=== PATIENT | male | born 1970 | race African-American/Black ===

== ENCOUNTER 2018-06-23 13:52 | Emergency (ER) | payer MEDICAID ==
[~2018-06-23] VITALS: Ht 182.9 cm; Wt 99.8 kg
[2018-06-23 14:12] VITALS: BP 157/90
[2018-06-23] MEDS ORDERED: TYLENOL EXTRA500 MG ORAL (14:12)
[2018-06-23] MEDS ORDERED: BACLOFEN10 MG ORAL (14:12)
[2018-06-23] MEDS ORDERED: GABAPENTIN100 MG ORAL (14:12)
[2018-06-23] MEDS ORDERED: DiphenhydrAMINE 50mg/ml Inj IVP ONE (14:30)
[2018-06-23] MEDS ORDERED: Metoclopramide 10mg/2ml Inj IVP ONE (14:30)
--- NOTE | 2018-06-23 14:31 | Emergency Room Report ---
History of Present Illness General Chief Complaint: General Complaint Source: Patient Present Illness HPI Patient presents with vomiting of blood. He is says it looks like wind punch. He denies any melena. This started yesterday. Also passed out yesterday when he stood up. He's been taking medication for back pain and shoulder pain. She was injured April 12 on the job [place] He states x-rays showed overlapping bones and also that his lumbar spine hasn't L deformity. He's been taking Tylenol baclofen and Gabapentin. He denies abdominal pain but he says that the back pain radiates somewhat to his abdomen. The back pain is 10/10 radiates down his left leg. He feels some numbness in his lower extremity on that side. There is no incontinence. He has been straining with his stools. No chest pain, dysuria, hematuria, blood thinners, oncologic problems, headache , neck pain, cough. Allergies: Coded Allergies: PENICILLINS (Verified Allergy, Unknown, 06/23/18) Patient History Past Medical History: see triage record Social History: Reports: smoking, alcohol use Social History Narrative Works for [employer] Reviewed Nursing Documentation: PMH: Agreed; PSxH: Agreed Nursing Documentation-PMH Past Medical History: No History, Except For Hx Cardiac Problems: No Hx Hypertension: No Hx Pacemaker: No Hx Asthma: Yes Hx COPD: No Hx Diabetes: No Hx Cancer: No Hx Gastrointestinal Problems: No Hx Dialysis: No History Of Psychiatric Problem: Yes - depression Hx Cerebrovascular Accident: No Hx Seizures: No Review of Systems All Other Systems: negative except mentioned in HPI Physical Exam Vital Signs Date Time Temp Pulse Resp B/P (MAP) Pulse Ox O2 Delivery O2 Flow Rate FiO2 06/23/18 14:02 97.7 77 14 157/90 98 Room Air 97.7 Sp02 EP Interpretation: reviewed, normal General Appearance: well appearing, no apparent distress, GCS 15 Head: normocephalic Eyes: bilateral eye normal inspection, bilateral eye PERRL, bilateral eye EOMI ENT: moist mucus membranes Neck: supple Respiratory: lungs clear, normal breath sounds Cardiovascular #1: regular rate, rhythm Cardiovascular #2: 2+ radial (R) Gastrointestinal: normal inspection, normal bowel sounds, no mass, non- distended, no guarding, no rebound, tenderness - epigastric Musculoskeletal: gait/station normal, normal range of motion, other - lumbar tenderness, not point, no step off. SLR neg L, muscle spasm Neurologic: alert, oriented x3, motor strength/tone normal, DTRs symmetric, sensory intact, normal gait, speech normal Psychiatric: mood/affect normal Skin: normal inspection, warm/dry Medical Decision Making Diagnostic Impression: Primary Impression: Acute pancreatitis Qualified Codes: K85.90 - Acute pancreatitis without necrosis or infection, unspecified Additional Impressions: Syncope Qualified Codes: R55 - Syncope and collapse Back pain Qualified Codes: M54.5 - Low back pain Right shoulder pain Qualified Codes: M25.511 - Pain in right shoulder; G89.29 - Other chronic pain Alleged vomiting blood ER Course Patient presents with alleged vomiting of blood. In addition to that he says he passed out yesterday. Differential includes gastritis, peptic ulcer disease , GERD amongst others. His abdominal exam is benign. His color is good. We need to exclude arrhythmia and acute myocardial infarction as he had syncope yesterday. Evaluation will be with EKG and labs. He will be treated with IV hydration, Reglan and Benadryl with Pepcid. He came by bus and therefore we are limited in analgesia working give him at this time. EKG no injury. Labs with elevated lipase. Morphine given for pain. Ultrasound - no stones. Patient improved. Discussed with Dr. Tipton who accepts the patient in transfer at [facility]. Laboratory Tests Test 06/23/18 14:35 06/23/18 15:05 White Blood Count 5.9 K/UL (4.8-10.8) Red Blood Count 5.07 M/UL (4.70-6.10) Hemoglobin 14.4 G/DL (14.2-18.0) Hematocrit 44.7 % (42.0-52.0) Mean Corpuscular Volume 88 FL (80-99) Mean Corpuscular Hemoglobin 28.5 PG (27.0-31.0) Mean Corpuscular Hemoglobin Concent 32.3 G/DL (32.0-36.0) Red Cell Distribution Width 13.4 % (11.6-14.8) Platelet Count 240 K/UL (150-450) Mean Platelet Volume 6.8 FL (6.5-10.1) Neutrophils (%) (Auto) 61.4 % (45.0-75.0) Lymphocytes (%) (Auto) 28.9 % (20.0-45.0) Monocytes (%) (Auto) 6.7 % (1.0-10.0) Eosinophils (%) (Auto) 2.3 % (0.0-3.0) Basophils (%) (Auto) 0.7 % (0.0-2.0) Prothrombin Time 11.1 SEC (9.30-11.50) Prothrombin Time INR 1.1 (0.9-1.1) PTT 28 SEC (23-33) Sodium Level 139 MMOL/L (136-145) Potassium Level 4.7 MMOL/L (3.5-5.1) Chloride Level 103 MMOL/L (98-107) Carbon Dioxide Level 28 MMOL/L (21-32) Anion Gap 8 mmol/L (5-15) Blood Urea Nitrogen 10 mg/dL (7-18) Creatinine 1.1 MG/DL (0.55-1.30) Estimate Glomerular Filtration Rate > 60 mL/min (>60) Glucose Level 89 MG/DL (74-106) Calcium Level 9.9 MG/DL (8.5-10.1) Total Bilirubin 0.5 MG/DL (0.2-1.0) Aspartate Amino Transferase (AST) 33 U/L (15-37) Alanine Aminotransferase (ALT) 34 U/L (12-78) Alkaline Phosphatase 124 U/L (46-116) H Total Creatine Kinase 356 U/L (26-308) H Troponin I 0.000 ng/mL (0.000-0.056) Total Protein 8.1 G/DL (6.4-8.2) Albumin 4.1 G/DL (3.4-5.0) Globulin 4.0 g/dL Albumin/Globulin Ratio 1.0 (1.0-2.7) Lipase 612 U/L (73-393) H Urine Color Pale yellow Urine Appearance Clear Urine pH 5 (4.5-8.0) Urine Specific [place] 1.015 (1.005-1.035) Urine Protein Negative (NEGATIVE) Urine Glucose (UA) Negative (NEGATIVE) Urine Ketones Negative (NEGATIVE) Urine Blood Negative (NEGATIVE) Urine Nitrite Negative (NEGATIVE) Urine Bilirubin Negative (NEGATIVE) Urine Urobilinogen Normal MG/DL (0.0-1.0) Urine Leukocyte Esterase Negative (NEGATIVE) Urine Opiates Screen Negative (NEGATIVE) Urine Barbiturates Screen Negative (NEGATIVE) Phencyclidine (PCP) Screen Negative (NEGATIVE) Urine Amphetamines Screen Negative (NEGATIVE) Urine Benzodiazepines Screen Negative (NEGATIVE) Urine Cocaine Screen Negative (NEGATIVE) Urine Marijuana (THC) Screen Positive (NEGATIVE) H EKG Diagnostic Results Rate: normal Rhythm: NSR ST Segments: no acute changes Rhythm Strip Diag. Results EP Interpretation: yes Rhythm: NSR, no PVC's, no ectopy CT/MRI/US Diagnostic Results CT/MRI/US Diagnostic Results : Imaging Test Ordered: ultrasound Impression No stones Last Vital Signs Date Time Temp Pulse Resp B/P (MAP) Pulse Ox O2 Delivery O2 Flow Rate FiO2 06/23/18 21:30 86 18 131/99 99 Room Air 06/23/18 20:24 98.4 Status: improved Disposition: XFER SHT-TRM HOSP Condition: Serious - stable for transfer Samuel Goins M.D. Jun 23, 2018 14:31
[2018-06-23 14:56] LABS: BASOPHILS % (AUTO) 0.7 % (0.0-2.0); EOSINOPHILS % (AUTO) 2.3 % (0.0-3.0); HEMATOCRIT 44.7 % (42.0-52.0); HEMOGLOBIN 14.4 G/DL (14.2-18.0); LYMPHOCYTES % (AUTO) 28.9 % (20.0-45.0); MEAN CORPUSCULAR VOLUME 88 FL (80-99); MONOCYTES % (AUTO) 6.7 % (1.0-10.0); NEUTROPHILS % (AUTO) 61.4 % (45.0-75.0); PLATELET COUNT 240 K/UL (150-450); RED BLOOD COUNT 5.07 M/UL (4.70-6.10); RED CELL DISTRIBUTION WIDTH 13.4 % (11.6-14.8); WHITE BLOOD COUNT 5.9 K/UL (4.8-10.8)
[2018-06-23 15:10] LABS: ANION GAP 8 mmol/L (5-15); BLOOD UREA NITROGEN 10 mg/dL (7-18); CALCIUM 9.9 MG/DL (8.5-10.1); CARBON DIOXIDE 28 MMOL/L (21-32); CHLORIDE 103 MMOL/L (98-107); CREATININE 1.1 MG/DL (0.55-1.30); POTASSIUM 4.7 MMOL/L (3.5-5.1); SODIUM 139 MMOL/L (136-145)
[2018-06-23 15:11] LABS: INR 1.1 (0.9-1.1)
[2018-06-23 15:15] LABS: ALANINE AMINOTRANSFERASE 34 U/L (12-78); ALBUMIN 4.1 G/DL (3.4-5.0); ALKALINE PHOSPHATASE 124 U/L (46-116); ASPARTATE AMINO TRANSFERASE 33 U/L (15-37); BILIRUBIN,TOTAL 0.5 MG/DL (0.2-1.0); CREATINE KINASE 356 U/L (26-308)
[2018-06-23 15:17] VITALS: BP 191/69
[2018-06-23 15:20] LABS: APPEARANCE,URINE CLEAR; BILIRUBIN, URINE NEGATIVE (NEGATIVE); COLOR,URINE PALE YELLOW; GLUCOSE, URINE (UA) NEGATIVE (NEGATIVE); KETONES,URINE NEGATIVE (NEGATIVE); LEUKOCYTE ESTERASE ,URINE NEGATIVE (NEGATIVE); NITRITE,URINE NEGATIVE (NEGATIVE); PH,URINE 5 (4.5-8.0); PROTEIN,URINE NEGATIVE (NEGATIVE); UROBILINOGEN,URINE NORMAL MG/DL (0.0-1.0)
[2018-06-23] MEDS ORDERED: Morphine Sulfate 4mg/ml Inj (IV USE ONLY) IVP ONE ×2 (15:30→20:30)
[2018-06-23 16:00] VITALS: BP 135/80
[2018-06-23 17:49] VITALS: BP 127/99
[2018-06-23] MEDS ORDERED: Pantoprazole Inj IVP ONE (18:15)
[2018-06-23 19:10] VITALS: BP 138/97
[2018-06-23 21:30] VITALS: BP 131/99
[2018-06-24 01:00] VITALS: BP 131/99
[2018-06-24] MEDS ORDERED: OMEPRAZOLE20 M2 ORAL (06:42)
[2018-06-24] MEDS ORDERED: NORCO 5-325 TA1 EACH ORAL (06:42)
--- NOTE | 2018-06-24 11:41 | Diagnostic Imaging Report ---
Indication: Abnormal pain Technique: Multiplanar ultrasound imaging of the abdomen. Duplex Doppler evaluation was also performed. Comparison: None Findings: Imaged portions of the pancreatic head grossly unremarkable. Remainder the pancreas not visualized. Liver is normal in size with the right lobe measuring 14 cm in length. Hepatic contour appears smooth. Echogenicity is homogeneous. No focal hepatic mass lesion is appreciated sonographically. Imaged hepatic veins are patent. The portal vein appears patent. No gallstones or gallbladder sludge identified. Sonographic Gonzalez sign reported as negative. No gallbladder wall thickening or pericholecystic fluid. No intrahepatic or extrahepatic biliary duct dilatation. The common bile duct measures approximately 1.5 mm in diameter. The kidneys demonstrate normal echogenicity. Normal color flow is also noted in the bilateral kidneys. No hydronephrosis or sonographically appreciable renal stones. The spleen is normal in size. Normal color flow to the spleen is identified. Imaged portions of the abdominal aorta and IVC are normal in caliber. No appreciable ascites. IMPRESSION: No sonographic evidence of acute intra-abdominal pathology.
--- NOTE | 2018-06-24 19:55 | Cardiology Report ---
APPROVED REPORT EKG Measurement Heart [id number] Normal sinus rhythm Normal ECG
[2018-06-24] MEDS ORDERED: XOPENEX HFA15 GM IH (23:47)
== END 2018-06-23 21:35 | disposition short-term general hospital (02) ==
LOC: EMR 14:32
DX: K85.90 Acute pancreatitis without necrosis or infection, unspecified (principal); R55 Syncope and collapse; Z88.0 Allergy status to penicillin
CPT/HCPCS: 36415; 76700; 80053; 80307; 81003; 82550; 83690; 84484; 85025; 85610; 85730; 93005; 96361; 96374; 96375; 96376; 99284; J1200; J2270; J2765; S0028; 96372

== ENCOUNTER 2018-06-24 06:11 | Emergency (ER) | payer MEDICAID ==
[~2018-06-24] VITALS: Ht 182.9 cm; Wt 101.6 kg
[~2018-06-24 06:11] MED LIST: BACLOFEN10 MG ORAL; GABAPENTIN100 MG ORAL; TYLENOL EXTRA500 MG ORAL
[2018-06-24 06:35] VITALS: BP 114/76
[2018-06-24] MEDS ORDERED: OMEPRAZOLE20 M2 ORAL (06:42)
[2018-06-24] MEDS ORDERED: NORCO 5-325 TA1 EACH ORAL (06:42)
[2018-06-24 06:50] VITALS: BP 114/76
--- NOTE | 2018-06-24 06:52 | Emergency Room Report ---
History of Present Illness General Chief Complaint: General Complaint Source: Patient Present Illness HPI Patient is a 47-year-old male recent transfer to [facility] for pancreatitis 2 presented after increased abdominal pain. The patient states he been vomiting blood for several days. The patient denies any current emesis. He had recently been the discharge against medical advise at [facility] after having been transferred from here. Patient denies any dizziness. He reports having epigastric pain. He stated that he did not like his treatment [facility]. The patient states he does not want to be admitted again. The patient was having moderate pain. Patient states he prefers to be managed as an outpatient.The patient was noted to have adequate hemoglobin on previous laboratories. Allergies: Coded Allergies: PENICILLINS (Verified Allergy, Unknown, 06/23/18) Patient History Past Medical History: see triage record Reviewed Nursing Documentation: PMH: Agreed; PSxH: Agreed Nursing Documentation-PMH Past Medical History: No History, Except For Hx Cardiac Problems: No Hx Hypertension: No Hx Pacemaker: No Hx Asthma: Yes Hx COPD: No Hx Diabetes: No Hx Cancer: No Hx Gastrointestinal Problems: No Hx Dialysis: No Hx Cerebrovascular Accident: No Hx Seizures: No Review of Systems All Other Systems: negative except mentioned in HPI Physical Exam Vital Signs Date Time Temp Pulse Resp B/P (MAP) Pulse Ox O2 Delivery O2 Flow Rate FiO2 06/24/18 06:20 98.6 77 16 114/76 98 Room Air 98.6 Sp02 EP Interpretation: reviewed, normal General Appearance: normal inspection, well appearing, no apparent distress, alert, GCS 15 Head: atraumatic ENT: normal ENT inspection, hearing grossly normal, normal voice Neck: normal inspection, full range of motion, supple, no bony tend Respiratory: normal inspection, lungs clear, normal breath sounds, no respiratory distress, no retraction, no wheezing Cardiovascular #1: regular rate, rhythm, no edema Gastrointestinal: normal inspection, normal bowel sounds, non tender, soft, no guarding, no hernia Genitourinary: no CVA tenderness Musculoskeletal: normal inspection, back normal, normal range of motion Neurologic: normal inspection, alert, oriented x3, responsive, lusterer III-XII nml as tested, speech normal Psychiatric: normal inspection, judgement/insight normal, mood/affect normal Skin: normal inspection, normal color, no rash Medical Decision Making Diagnostic Impression: Primary Impression: Pancreatitis ER Course Patient presented for abdominal pain. Differential diagnoses included ischemic bowel, appendicitis, perforated viscus, abdominal aortic aneurysm, inferior myocardial infarction, viral gastroenteritis. Patient has a benign exam and does not appear to require any further imaging or laboratory testing at this time. The patient was noted to have normal vital signs.The patient does not appear to be significantly vomiting blood at this time. The patient does not appear to require laboratories given prolonged and presentation after vomiting began. The patient noted have evidence of pancreatitis and prior laboratory testing. The patient appears to be adequately tolerating by mouth fluids. The patient is advised to not drink alcohol. The patient stated that if his laboratory testing was abnormal he would not be hospitalized. Patient was advised follow-up with systems protection technician. Patient is advised to return if he began having persistent vomiting worsening pain or or changed his mind about admission. Last Vital Signs Date Time Temp Pulse Resp B/P (MAP) Pulse Ox O2 Delivery O2 Flow Rate FiO2 06/24/18 06:20 98.6 77 16 114/76 98 Room Air 98.6 Status: improved Disposition: HOME, SELF-CARE Condition: Stable Scripts Omeprazole (OMEPRAZOLE) 20 Mg Capsule.dr 20 MG ORAL DAILY, #30 CAP Prov: Jim Dominguez MD 06/24/18 Hydrocodone Bit/Acetaminophen 5-325* (NORCO 5-325*) 1 Each Tablet 1 TAB ORAL Q6H PRN for For Pain, #14 TAB 0 Refills Prov: Jim Dominguez MD 06/24/18 Patient Instructions: Acute Pancreatitis Jim Dominguez MD Jun 24, 2018 06:52
[2018-06-24] MEDS ORDERED: XOPENEX HFA15 GM IH (23:47)
== END 2018-06-24 06:50 | disposition home or self-care (01) ==
LOC: EMR 06:32
DX: K85.90 Acute pancreatitis without necrosis or infection, unspecified (principal); Z88.0 Allergy status to penicillin
CPT/HCPCS: 99283

== ENCOUNTER 2018-06-24 18:23 | Inpatient (IN) | payer MEDICAID ==
[~2018-06-24] VITALS: Ht 182.9 cm; Wt 101.6 kg
[~2018-06-24 18:23] MED LIST changes: +NORCO 5-325 TA1 EACH ORAL; +OMEPRAZOLE20 M2 ORAL
[2018-06-24 20:15] VITALS: BP 135/90
[2018-06-24 20:27] LABS: ANION GAP 8 mmol/L (5-15); BLOOD UREA NITROGEN 8 mg/dL (7-18); CARBON DIOXIDE 30 MMOL/L (21-32); CHLORIDE 100 MMOL/L (98-107); CREATININE 1.2 MG/DL (0.55-1.30); POTASSIUM 3.7 MMOL/L (3.5-5.1); SODIUM 138 MMOL/L (136-145)
[2018-06-24 20:31] LABS: ALANINE AMINOTRANSFERASE 36 U/L (12-78); ALBUMIN 4.4 G/DL (3.4-5.0); ALBUMIN/GLOBULIN RATIO 1.1 (1.0-2.7); ALKALINE PHOSPHATASE 125 U/L (46-116); ASPARTATE AMINO TRANSFERASE 27 U/L (15-37); BILIRUBIN,TOTAL 0.5 MG/DL (0.2-1.0)
--- NOTE | 2018-06-24 20:40 | Emergency Room Report ---
History of Present Illness General Chief Complaint: General Complaint Source: Patient, Medical Record Present Illness HPI Patient represents. He was transferred yesterday to [facility] for pancreatitis, upper GI bleed and syncope. He states nothing was done for him there and so he signed out AGAINST MEDICAL ADVICE. He vomited some blood again today. The there still pain in his stomach and back. The pain is rated at 9/10 , aching, more in his back but also epigastric. He has passed some blood with his stool, but denies melena. Ultrasound of abdomen done yesterday which was normal. The patient suffered a work injury April 22 fell onto his shoulder. He also injured his back. He's being evaluated for the pain there. He states he has had x-rays of the shoulder and back which are abnormal - the back is "L shaped" and the shoulder has "bone overlapping". 2 days ago he had a syncopal episode standing up. He continued to vomit. He then started vomiting up blood. He states he again vomited blood today. He last drank alcohol several days ago and denies daily alcohol. When he was evaluated yesterday in his lipase was 612. He was improved with IV hydration and analgesia. Initially refused transfer but then agreed to being transferred. During that process, he was occasionally abusive to staff. He was told of need for NPO. Several times, he insisted on leaving the ED to make phone calls to associates. No URI sy. No rashes. Allergies: Coded Allergies: PENICILLINS (Verified Allergy, Unknown, 06/24/18) Patient History Past Medical History: see triage record, old chart reviewed Social History: Reports: alcohol use Social History Narrative worked for [employer] Reviewed Nursing Documentation: PMH: Agreed; PSxH: Agreed Nursing Documentation-PMH Past Medical History: No History, Except For Hx Cardiac Problems: No Hx Hypertension: No Hx Pacemaker: No Hx Asthma: Yes Hx COPD: No Hx Diabetes: No Hx Cancer: No Hx Gastrointestinal Problems: No Hx Dialysis: No Hx Cerebrovascular Accident: No Hx Seizures: No Review of Systems All Other Systems: negative except mentioned in HPI Physical Exam Vital Signs Date Time Temp Pulse Resp B/P (MAP) Pulse Ox O2 Delivery O2 Flow Rate FiO2 06/24/18 18:46 98.3 76 16 137/92 100 Room Air 98.2 Sp02 EP Interpretation: reviewed, normal General Appearance: well appearing, no apparent distress, GCS 15 Head: normocephalic Eyes: bilateral eye normal inspection, bilateral eye PERRL ENT: moist mucus membranes Neck: supple Respiratory: lungs clear, normal breath sounds Cardiovascular #1: regular rate, rhythm Cardiovascular #2: 2+ radial (R) Gastrointestinal: normal inspection, normal bowel sounds, no mass, non- distended, no guarding, no rebound, tenderness - reported epigastric Genitourinary: no CVA tenderness Musculoskeletal: gait/station normal, normal range of motion, tender - lumbar area, though stands, walks and sits without difficulty. TTP R shoulder, though ROM normal Neurologic: alert, oriented x3, grossly normal Psychiatric: mood/affect normal - though bouts of anger expressed at staff Skin: normal inspection, warm/dry, other - tear tattoos Medical Decision Making Diagnostic Impression: Primary Impression: Pancreatitis Qualified Codes: K85.90 - Acute pancreatitis without necrosis or infection, unspecified Additional Impressions: Allegedly vomiting blood Shoulder pain Qualified Codes: M25.511 - Pain in right shoulder; G89.29 - Other chronic pain Back pain Qualified Codes: M54.42 - Lumbago with sciatica, left side; G89.29 - Other chronic pain Poor impulse control ER Course Patient re-presents with vomiting and pain in his abdomen, shoulder and back. Differential includes pancreatitis, gastritis, drug seeking, electrolyte imbalance amongst others. Patient will be reevaluated with labs receive IV hydration. He will be given Pepcid. Labs still with elevated lipase. H/H stable. Needs IV hydration and evaluation for pain, vomiting and syncope. Patient again yelling at staff regarding need to be admitted. If it were just the pancreatitis, the patient's condition would be managed as an outpatient. However, he also complains of continued vomiting blood and had a syncopal episode. The pancreatitis and vomiting merits inpatient evaluation and observation with consideration for GI consultation. The etiology of the elevated lipase in unclear and also merits evaluation for etiology for pancreatitis. Admit med Dr. Jones. Laboratory Tests Test 06/24/18 19:45 White Blood Count 6.3 K/UL (4.8-10.8) Red Blood Count 4.89 M/UL (4.70-6.10) Hemoglobin 14.1 G/DL (14.2-18.0) L Hematocrit 43.0 % (42.0-52.0) Mean Corpuscular Volume 88 FL (80-99) Mean Corpuscular Hemoglobin 28.9 PG (27.0-31.0) Mean Corpuscular Hemoglobin Concent 32.9 G/DL (32.0-36.0) Red Cell Distribution Width 13.4 % (11.6-14.8) Platelet Count 248 K/UL (150-450) Mean Platelet Volume 6.9 FL (6.5-10.1) Neutrophils (%) (Auto) 62.6 % (45.0-75.0) Lymphocytes (%) (Auto) 27.4 % (20.0-45.0) Monocytes (%) (Auto) 7.8 % (1.0-10.0) Eosinophils (%) (Auto) 1.6 % (0.0-3.0) Basophils (%) (Auto) 0.6 % (0.0-2.0) Sodium Level 138 MMOL/L (136-145) Potassium Level 3.7 MMOL/L (3.5-5.1) Chloride Level 100 MMOL/L (98-107) Carbon Dioxide Level 30 MMOL/L (21-32) Anion Gap 8 mmol/L (5-15) Blood Urea Nitrogen 8 mg/dL (7-18) Creatinine 1.2 MG/DL (0.55-1.30) Estimate Glomerular Filtration Rate > 60 mL/min (>60) Glucose Level 91 MG/DL (74-106) Calcium Level 10.0 MG/DL (8.5-10.1) Total Bilirubin 0.5 MG/DL (0.2-1.0) Aspartate Amino Transferase (AST) 27 U/L (15-37) Alanine Aminotransferase (ALT) 36 U/L (12-78) Alkaline Phosphatase 125 U/L (46-116) H Total Protein 8.4 G/DL (6.4-8.2) H Albumin 4.4 G/DL (3.4-5.0) Globulin 4.0 g/dL Albumin/Globulin Ratio 1.1 (1.0-2.7) Lipase 510 U/L (73-393) H Last Vital Signs Date Time Temp Pulse Resp B/P (MAP) Pulse Ox O2 Delivery O2 Flow Rate FiO2 06/25/18 00:46 Room Air 06/24/18 23:55 98.2 73 18 127/84 (98) 100 98.2 Status: improved Disposition: ADMITTED INPATIENT Condition: Serious Referrals: [facility],REFERRING (PCP) Samuel Goins M.D. Jun 24, 2018 20:40
[2018-06-24 20:50] LABS: BASOPHILS % (AUTO) 0.6 % (0.0-2.0); EOSINOPHILS % (AUTO) 1.6 % (0.0-3.0); HEMOGLOBIN 14.1 G/DL (14.2-18.0); LYMPHOCYTES % (AUTO) 27.4 % (20.0-45.0); MEAN CORPUSCULAR VOLUME 88 FL (80-99); MONOCYTES % (AUTO) 7.8 % (1.0-10.0); NEUTROPHILS % (AUTO) 62.6 % (45.0-75.0); PLATELET COUNT 248 K/UL (150-450); RED BLOOD COUNT 4.89 M/UL (4.70-6.10); RED CELL DISTRIBUTION WIDTH 13.4 % (11.6-14.8); WHITE BLOOD COUNT 6.3 K/UL (4.8-10.8)
[2018-06-24] MEDS ORDERED: XOPENEX HFA15 GM IH (23:47)
[2018-06-24 23:55] VITALS: BP 127/84
[2018-06-25] MEDS ORDERED: D5NS 1,000 ML IV SCH (03:00)
[2018-06-25] MEDS ORDERED: Morphine Sulfate 2mg/ml Inj IVP PRN (03:00)
--- NOTE | 2018-06-28 08:56 | Discharge Summary ---
Discharge Summary Discharge Summary _ DATE OF ADMISSION: 06/24/2018 DATE OF DISCHARGE: 06/25/2018. Patient signed Against Medical Advice. REASON FOR ADMISSION: 47 years old male initially presented on 06/23 day for pancreatitis , upper GI bleeding and syncope. Ultrasound of the abdomen was negative. Lipase was 612. Patient improved with IV hydration and analgesia. Hemoglobin and hematocrit were stable. Patient was subsequently transferred to [facility] per insurance purposes. He left AMA from that facility since according to patient nothing was done for him. Patient reported vomiting blood afterwards. Patient reported pain in the stomach and the back , rating 9 out of 10 and epigastric pain. Patient reported blood in the stool. Patient reported work-related injury on April 22 , when he fell on his shoulder and injured his back. He was evaluated for the pain in another facility and stated that his x-rays of the shoulder back were abnormal with L-shaped back and shoulder bone overlapping. Patient also reported syncopal episode 2 days ago. Last alcoholic drink was several days ago. Patient denied daily alcohol use. Upon evaluation in the previous facility Upon evaluation in emergency department vital signs were stable. No leukocytosis, stable hemoglobin and hematocrit with hemoglobin 14.1 hematocrit 43. LFT within normal limits. Lipase still elevated , 510. Patient started on IV fluids, analgesia provided along with antiemetic and Pepcid. Patient was subsequently admitted with diagnoses of pancreatitis , questionable hematemesis, poor impulse control, back b and shoulder pain. HOSPITAL COURSE: Patient admitted . Patient was kept nothing by mouth and started on the IV fluids. Pain management provided . Patient was progressively becoming noncooperative with orders, his mood escalated, requiring unarmed security officer on the floor. Patient decided to leave AGAINST MEDICAL ADVICE, however he declined to sign a form. The risks and consequences of signing AGAINST MEDICAL ADVICE were discussed with patient in detail. FINAL DIAGNOSES: Pancreatitis Questionable hematemesis Poor impulse control Back and shoulder pain I have been assigned to dictate discharge summary for this account. I was not involved in the patient's management. Mini Marte NP Jun 28, 2018 08:55
== END 2018-06-25 02:46 | disposition left against medical advice (07) | DRG 282 ==
LOC: EMR 19:44 → EDBEDREQ 21:17 → 3E 21:40 → EDBEDREQ 21:47
DX: K85.90 Acute pancreatitis without necrosis or infection, unspecified (principal); K92.2 Gastrointestinal hemorrhage, unspecified; M25.511 Pain in right shoulder; M54.9 Dorsalgia, unspecified; Z88.0 Allergy status to penicillin; R45.87 Impulsiveness
CPT/HCPCS: 36415; 80053; 83690; 85025; 87081; 96374; 96375; 99285; J2405

== ENCOUNTER 2018-07-22 22:19 | Emergency (ER) | payer MEDICAID ==
[~2018-07-22] VITALS: Ht 182.9 cm; Wt 97.1 kg
[~2018-07-22 22:19] MED LIST changes: +XOPENEX HFA15 GM IH
[2018-07-22 22:30] VITALS: BP 125/79
[2018-07-22] MEDS ORDERED: Pantoprazole Inj IV ONE (22:45)
[2018-07-22 23:34] LABS: BASOPHILS % (AUTO) 0.6 % (0.0-2.0); EOSINOPHILS % (AUTO) 3.1 % (0.0-3.0); HEMATOCRIT 43.5 % (42.0-52.0); HEMOGLOBIN 14.5 G/DL (14.2-18.0); LYMPHOCYTES % (AUTO) 29.8 % (20.0-45.0); MEAN CORPUSCULAR VOLUME 87 FL (80-99); MONOCYTES % (AUTO) 6.4 % (1.0-10.0); NEUTROPHILS % (AUTO) 60.2 % (45.0-75.0); PLATELET COUNT 272 K/UL (150-450); RED BLOOD COUNT 4.97 M/UL (4.70-6.10); RED CELL DISTRIBUTION WIDTH 13.1 % (11.6-14.8); WHITE BLOOD COUNT 7.4 K/UL (4.8-10.8)
[2018-07-22 23:37] LABS: APPEARANCE,URINE SLIGHTLY CLOUDY; BILIRUBIN, URINE NEGATIVE (NEGATIVE); COLOR,URINE PALE YELLOW; GLUCOSE, URINE (UA) NEGATIVE (NEGATIVE); KETONES,URINE NEGATIVE (NEGATIVE); LEUKOCYTE ESTERASE ,URINE NEGATIVE (NEGATIVE); NITRITE,URINE NEGATIVE (NEGATIVE); PH,URINE 7 (4.5-8.0); PROTEIN,URINE NEGATIVE (NEGATIVE); UROBILINOGEN,URINE NORMAL MG/DL (0.0-1.0)
[2018-07-22 23:43] LABS: ANION GAP 9 mmol/L (5-15); BLOOD UREA NITROGEN 9 mg/dL (7-18); CARBON DIOXIDE 32 MMOL/L (21-32); CHLORIDE 103 MMOL/L (98-107); CREATININE 1.2 MG/DL (0.55-1.30); POTASSIUM 4.3 MMOL/L (3.5-5.1); SODIUM 144 MMOL/L (136-145)
[2018-07-22 23:49] LABS: ALANINE AMINOTRANSFERASE 34 U/L (12-78); ALKALINE PHOSPHATASE 116 U/L (46-116); ASPARTATE AMINO TRANSFERASE 21 U/L (15-37); BILIRUBIN,TOTAL 0.2 MG/DL (0.2-1.0)
[2018-07-23 00:04] VITALS: BP 125/79
[2018-07-23 00:32] VITALS: BP 117/77
--- NOTE | 2018-07-23 01:44 | Emergency Room Report ---
History of Present Illness General Chief Complaint: General Complaint Source: Patient, Medical Record Present Illness HPI Patient is a 47-year-old male who presented after a reported hematemesis. Patient had previous history of pancreatitis. Patient reports having recently had alcohol earlier in the day. He states he ate some [employer] and subsequently began having increased the hematemesis. He states he does not drink alcohol regularly. He reports having prior episodes of bleeding several months ago.The patient denies any bloody stools. He reports having prior history of ulcer disease. He does not currently take any acid blockers. Allergies: Coded Allergies: PENICILLINS (Verified Allergy, Unknown, 07/22/18) Patient History Past Medical History: see triage record Reviewed Nursing Documentation: PMH: Agreed; PSxH: Agreed Nursing Documentation-PMH Past Medical History: No History, Except For Hx Cardiac Problems: No Hx Hypertension: No Hx Pacemaker: No Hx Asthma: Yes Hx COPD: No Hx Diabetes: No Hx Cancer: No Hx Gastrointestinal Problems: No Hx Dialysis: No Hx Neurological Problems: No Hx Cerebrovascular Accident: No Hx Seizures: No Review of Systems All Other Systems: negative except mentioned in HPI Physical Exam Vital Signs Date Time Temp Pulse Resp B/P (MAP) Pulse Ox O2 Delivery O2 Flow Rate FiO2 07/22/18 22:24 99.4 86 15 142/75 98 Room Air 99.3 Sp02 EP Interpretation: reviewed, normal General Appearance: normal inspection, well appearing, no apparent distress, alert, GCS 15 Head: atraumatic ENT: normal ENT inspection, hearing grossly normal, normal voice Neck: normal inspection, full range of motion, supple, no bony tend Respiratory: normal inspection, lungs clear, normal breath sounds, no respiratory distress, no retraction, no wheezing Cardiovascular #1: regular rate, rhythm, no edema Gastrointestinal: normal inspection, normal bowel sounds, non tender, soft, no guarding, no hernia Genitourinary: no CVA tenderness Musculoskeletal: normal inspection, back normal, normal range of motion Neurologic: normal inspection, alert, oriented x3, responsive, clinical nursing intern III-XII nml as tested, speech normal Psychiatric: normal inspection, judgement/insight normal, mood/affect normal Skin: normal inspection, normal color, no rash Medical Decision Making Diagnostic Impression: Primary Impression: Upper GI bleeding ER Course Patient presented for abdominal pain. Differential diagnoses included ischemic bowel, appendicitis, perforated viscus, abdominal aortic aneurysm, inferior myocardial infarction, viral gastroenteritis Because of complexity of patient's case laboratory testing and imaging studies were ordered. The patient noted to have the GI bleeding by history. The patient have any noted bleeding while in the emergency department. The patient's initial hemoglobin appear to be at his baseline. The given the patient's concerning symptoms I advised him to be admitted the hospital for further workup to include endoscopy.The patient was advised risk benefits alternatives of leaving AGAINST MEDICAL ADVICE and he indicated understanding and all questions are answered patient still continued want to leave and signed AGAINST MEDICAL ADVICE. Despite risks including but not limited to disability and worsening of current lifestyle. Labs Test 07/22/18 23:00 White Blood Count 7.4 K/UL (4.8-10.8) Red Blood Count 4.97 M/UL (4.70-6.10) Hemoglobin 14.5 G/DL (14.2-18.0) Hematocrit 43.5 % (42.0-52.0) Mean Corpuscular Volume 87 FL (80-99) Mean Corpuscular Hemoglobin 29.2 PG (27.0-31.0) Mean Corpuscular Hemoglobin Concent 33.3 G/DL (32.0-36.0) Red Cell Distribution Width 13.1 % (11.6-14.8) Platelet Count 272 K/UL (150-450) Mean Platelet Volume 7.2 FL (6.5-10.1) Neutrophils (%) (Auto) 60.2 % (45.0-75.0) Lymphocytes (%) (Auto) 29.8 % (20.0-45.0) Monocytes (%) (Auto) 6.4 % (1.0-10.0) Eosinophils (%) (Auto) 3.1 % (0.0-3.0) Basophils (%) (Auto) 0.6 % (0.0-2.0) Prothrombin Time 10.8 SEC (9.30-11.50) Prothromb Time International Ratio 1.0 (0.9-1.1) Activated Partial Thromboplast Time 27 SEC (23-33) Urine Color Pale yellow Urine Appearance Slightly cloudy Urine pH 7 (4.5-8.0) Urine Specific [place] 1.015 (1.005-1.035) Urine Protein Negative (NEGATIVE) Urine Glucose (UA) Negative (NEGATIVE) Urine Ketones Negative (NEGATIVE) Urine Blood Negative (NEGATIVE) Urine Nitrite Negative (NEGATIVE) Urine Bilirubin Negative (NEGATIVE) Urine Urobilinogen Normal MG/DL (0.0-1.0) Urine Leukocyte Esterase Negative (NEGATIVE) Sodium Level 144 MMOL/L (136-145) Potassium Level 4.3 MMOL/L (3.5-5.1) Chloride Level 103 MMOL/L (98-107) Carbon Dioxide Level 32 MMOL/L (21-32) Anion Gap 9 mmol/L (5-15) Blood Urea Nitrogen 9 mg/dL (7-18) Creatinine 1.2 MG/DL (0.55-1.30) Estimat Glomerular Filtration Rate > 60 mL/min (>60) Glucose Level 90 MG/DL (74-106) Calcium Level 10.0 MG/DL (8.5-10.1) Total Bilirubin 0.2 MG/DL (0.2-1.0) Aspartate Amino Transf (AST/SGOT) 21 U/L (15-37) Alanine Aminotransferase (ALT/SGPT) 34 U/L (12-78) Alkaline Phosphatase 116 U/L (46-116) Total Protein 8.0 G/DL (6.4-8.2) Albumin 4.0 G/DL (3.4-5.0) Globulin 4.0 g/dL Albumin/Globulin Ratio 1.0 (1.0-2.7) Lipase 219 U/L (73-393) Last Vital Signs Date Time Temp Pulse Resp B/P (MAP) Pulse Ox O2 Delivery O2 Flow Rate FiO2 07/23/18 00:32 99.4 79 15 117/77 98 Room Air 99.4 Status: improved Disposition: AGAINST MEDICAL ADVICE Condition: Stable Referrals: [employer] [facility],REFERRING (PCP) Jim Dominguez MD Jul 23, 2018 01:44
== END 2018-07-23 00:20 | disposition left against medical advice (07) ==
LOC: EMR 22:51
DX: K92.2 Gastrointestinal hemorrhage, unspecified (principal); J45.909 Unspecified asthma, uncomplicated; Z88.0 Allergy status to penicillin
CPT/HCPCS: 36415; 80053; 81003; 83690; 85025; 85610; 85730; 86850; 86900; 86901; 96361; 96374; 99284; C9113

== ENCOUNTER 2018-07-29 04:03 | Emergency (ER) | payer MEDICAID ==
[~2018-07-29] VITALS: Ht 182.9 cm; Wt 97.1 kg
[2018-07-29 04:03] VITALS: BP 141/86
--- NOTE | 2018-07-29 04:26 | Emergency Room Report ---
History of Present Illness General Chief Complaint: Abdominal Pain Source: Patient Present Illness HPI This is a 47-year-old male with a history of epigastric pain and hematemesis. He's been here several times for this already. He was transfer wants to [facility] for which she's out AMA. He sat out AMA several times here. He presents with chief complaint abdominal pain and epigastric area starting tonight. He also has some vomiting which he noted blood in it. He said he felt his usual pass out. He is able to drive himself here. Pain is 9 out of 10. No radiation. Localized to the epigastric area. Sharp in nature. Has nausea and vomiting. No diarrhea. No melena. Because he signed out AMA several times, she is not on any proton pump inhibitor. Has not follow-up with primary care doctor for GI referral. Allergies: Coded Allergies: PENICILLINS (Verified Allergy, Unknown, 07/22/18) Patient History Past Medical History: see triage record, old chart reviewed Past Surgical History: other Pertinent Family History: none Social History: Reports: alcohol use - social Immunizations: other Reviewed Nursing Documentation: PMH: Agreed; PSxH: Agreed Nursing Documentation-PMH Past Medical History: No History, Except For Hx Cardiac Problems: No Hx Hypertension: No Hx Pacemaker: No Hx Asthma: Yes Hx COPD: No Hx Diabetes: No Hx Cancer: No Hx Gastrointestinal Problems: Yes Hx Dialysis: No Hx Neurological Problems: No Hx Cerebrovascular Accident: No Hx Seizures: No Review of Systems Eye: Denies: eye pain, blurred vision ENT: Denies: ear pain, nose congestion, throat swelling Respiratory: Denies: cough, shortness of breath Cardiovascular: Denies: chest pain, palpitations Gastrointestinal: Reports: abdominal pain, hematemesis; Denies: diarrhea, nausea, vomiting Musculoskeletal: Denies: back pain, joint pain Skin: Denies: rash Neurological: Denies: headache, numbness Endocrine: Denies: increased thirst, increased urine Hematologic/Lymphatic: Denies: easy bruising All Other Systems: negative except mentioned in HPI Physical Exam Vital Signs Date Time Temp Pulse Resp B/P (MAP) Pulse Ox O2 Delivery O2 Flow Rate FiO2 07/29/18 04:05 98.2 81 20 136/90 98 Room Air vitals normal Sp02 EP Interpretation: reviewed, normal General Appearance: well appearing, no apparent distress, alert Head: normocephalic, atraumatic Eyes: bilateral eye PERRL, bilateral eye EOMI ENT: hearing grossly normal, normal pharynx Neck: full range of motion, supple, no meningismus Respiratory: chest non-tender, lungs clear, normal breath sounds Cardiovascular #1: regular rate, rhythm, no murmur Gastrointestinal: normal bowel sounds, no mass, no organomegaly, no bruit, non- distended, tenderness - epigastric Musculoskeletal: back normal, gait/station normal, normal range of motion Psychiatric: mood/affect normal Skin: warm/dry Medical Decision Making Diagnostic Impression: Primary Impression: Hematemesis Qualified Codes: K92.0 - Hematemesis Additional Impression: Abdominal pain Qualified Codes: R10.13 - Epigastric pain ER Course Patient with amount emesis. This appeared to be a chronic problem for which he' s been here several times already. He will need endoscopy. This may be secondary to bleeding ulcer or variceal. I suspect alcohol abuse since this lipase is slightly elevated. This may be a variceal bleed. Patient is otherwise stable. Hemoglobin stable. No perforation or acute abdomen. He's been sleeping comfortably here without any problem. Vital stable. No vomiting here. We'll discharge home with proton pump inhibitor. Lab Results Impression labs normal CT/MRI/US Diagnostic Results CT/MRI/US Diagnostic Results : Imaging Test Ordered: CT abdomen and pelvis Impression negative per radiologist Last Vital Signs Date Time Temp Pulse Resp B/P (MAP) Pulse Ox O2 Delivery O2 Flow Rate FiO2 07/29/18 04:05 98.2 81 20 136/90 98 Room Air Status: improved Disposition: HOME, SELF-CARE Condition: Stable Scripts Omeprazole Magnesium (PRILOSEC OTC) 20 Mg Tablet. 20 MG ORAL DAILY, #30 TAB Prov: Yvon Jenkins MD 07/29/18 Referrals: [employer] [facility],REFERRING (PCP) Additional Instructions: Follow-up with your DrNiya within 7 days. You will need a referral to see a gastric neurology teacher for endoscopy. Abstain from alcohol. Absolutely no alcohol. This may make your condition worse. Return if symptom worsen. Yvon Jenkins MD Jul 29, 2018 04:26
[2018-07-29] MEDS ORDERED: Pantoprazole Inj IV ONE (04:30)
[2018-07-29 05:18] LABS: APPEARANCE,URINE CLEAR; BILIRUBIN, URINE NEGATIVE (NEGATIVE); COLOR,URINE PALE YELLOW; GLUCOSE, URINE (UA) NEGATIVE (NEGATIVE); KETONES,URINE NEGATIVE (NEGATIVE); NITRITE,URINE NEGATIVE (NEGATIVE); PH,URINE 6 (4.5-8.0); PROTEIN,URINE NEGATIVE (NEGATIVE); UROBILINOGEN,URINE NORMAL MG/DL (0.0-1.0)
[2018-07-29 05:22] LABS: BASOPHILS % (AUTO) 0.4 % (0.0-2.0); EOSINOPHILS % (AUTO) 0.9 % (0.0-3.0); HEMATOCRIT 44.4 % (42.0-52.0); HEMOGLOBIN 14.4 G/DL (14.2-18.0); LYMPHOCYTES % (AUTO) 27.7 % (20.0-45.0); MEAN CORPUSCULAR VOLUME 86 FL (80-99); MONOCYTES % (AUTO) 4.4 % (1.0-10.0); NEUTROPHILS % (AUTO) 66.6 % (45.0-75.0); PLATELET COUNT 294 K/UL (150-450); RED BLOOD COUNT 5.16 M/UL (4.70-6.10); RED CELL DISTRIBUTION WIDTH 12.6 % (11.6-14.8)
[2018-07-29 05:24] LABS: ANION GAP 4 mmol/L (5-15); BLOOD UREA NITROGEN 7 mg/dL (7-18); CALCIUM 9.4 MG/DL (8.5-10.1); CARBON DIOXIDE 31 MMOL/L (21-32); CHLORIDE 100 MMOL/L (98-107); CREATININE 1.1 MG/DL (0.55-1.30); LEUKOCYTE ESTERASE ,URINE NEGATIVE (NEGATIVE); POTASSIUM 3.5 MMOL/L (3.5-5.1); SODIUM 135 MMOL/L (136-145)
[2018-07-29 05:28] LABS: ALANINE AMINOTRANSFERASE 28 U/L (12-78); ALBUMIN 3.8 G/DL (3.4-5.0); ALKALINE PHOSPHATASE 115 U/L (46-116); ASPARTATE AMINO TRANSFERASE 19 U/L (15-37); BILIRUBIN,TOTAL 0.4 MG/DL (0.2-1.0)
[2018-07-29 05:49] VITALS: BP 113/72
[2018-07-29 06:31] VITALS: BP 94/58
[2018-07-29] MEDS ORDERED: PRILOSEC OTC20 MG ORAL (06:46)
[2018-07-29 06:55] VITALS: BP 137/91
--- NOTE | 2018-07-29 10:00 | Diagnostic Imaging Report ---
Indication: Abdominal pain Technique: Continuous helical transaxial imaging of the abdomen and pelvis was obtained from the lung bases to the pubic symphysis. No intravenous contrast was administered. Coronal 2-D reformats were also obtained. Automatic Exposure Control was utilized. Total Dose length Product (DLP): 741.[address] Dose Index Volume (CTDIvol): 13.21 mGy Comparison: none Findings: The lung bases are clear. No nephrolithiasis or hydronephrosis appreciated. Appendectomy noted. No free fluid or free air identified. The bladder is unremarkable. Prostate calcification noted. No evidence of bowel obstruction. Evaluation limited by the lack of the administered oral and IV contrast IMPRESSION: No acute findings. Status post appendectomy [facility] has communicated the preliminary results to the Emergency Department. Their findings are largely concordant with this report. The CT scanner at [facility] is accredited by the [employer] and the scans are performed using dose optimization techniques as appropriate to a performed exam including Automatic Exposure control.
== END 2018-07-29 06:55 | disposition home or self-care (01) ==
LOC: EMR 04:19
DX: K92.0 Hematemesis (principal); R10.13 Epigastric pain; J45.909 Unspecified asthma, uncomplicated; Z90.49 Acquired absence of other specified parts of digestive tract
CPT/HCPCS: 36415; 74176; 80053; 80329; 81003; 83690; 85025; 96361; 96374; 96375; 99284; C9113; J2405

== ENCOUNTER 2018-08-04 06:12 | Inpatient (IN) | payer MEDICAID ==
[~2018-08-04] VITALS: Ht 182.9 cm; Wt 98.0 kg
[~2018-08-04 06:12] MED LIST changes: +PRILOSEC OTC20 MG ORAL
[2018-08-04] MEDS ORDERED: Metoclopramide 10mg/2ml Inj IVP ONE (06:30)
[2018-08-04] MEDS ORDERED: DiphenhydrAMINE 50mg/ml Inj IVP ONE (06:30)
[2018-08-04 06:40] VITALS: BP 125/84
--- NOTE | 2018-08-04 06:53 | Emergency Room Report ---
History of Present Illness General Chief Complaint: Nausea, Vomiting, and Diarrhea Source: Patient Present Illness HPI The patient presents with 3-1/2 hours of vomiting and moving his bowels loosely. He states his mother told him it was stomach flu. He denies any fevers or chills. He has some mild discomfort in his abdomen that's diffuse and crampy. He denies any dysuria. He's had long-standing of history of passing blood in stool. This is not changed. He states it is a burgundy color. The patient has a history of pancreatitis in the past. He says that the pain is not like that. In addition he's had vomiting of blood. He denies this at the moment. No URI sy, cough, chest pain, headache, dizziness, change in vision, rashes, joint pain, depression. In the past he has had poor impulse control in the ED here. Has signed out AMA several times. Seen here 07/29 with hematemesis. Omeprazole was prescribed. Had abdominal pain at that time. Endoscopy has been suggested, but patient signs out prior to being done. Allergies: Coded Allergies: PENICILLINS (Verified Allergy, Unknown, 07/22/18) Patient History Past Medical History: see triage record Past Surgical History: appy, other - Low back surgery, L knee surgery Social History: Reports: smoking, drug use - [facility] Social History Narrative Lives with his mother Reviewed Nursing Documentation: PMH: Agreed; PSxH: Agreed Nursing Documentation-PM Hx Cardiac Problems: No Hx Hypertension: No Hx Pacemaker: No Hx Asthma: Yes Hx COPD: No Hx Diabetes: No Hx Cancer: No Hx Gastrointestinal Problems: Yes Hx Dialysis: No History Of Psychiatric Problem: Yes - depression, anxiety Hx Neurological Problems: No Hx Cerebrovascular Accident: No Hx Seizures: No Review of Systems All Other Systems: negative except mentioned in HPI Physical Exam Vital Signs Date Time Temp Pulse Resp B/P (MAP) Pulse Ox O2 Delivery O2 Flow Rate FiO2 08/04/18 06:17 98.1 98 16 128/84 99 Room Air Sp02 EP Interpretation: reviewed, normal General Appearance: well appearing, no apparent distress, GCS 15 Head: normocephalic Eyes: bilateral eye normal inspection ENT: moist mucus membranes Neck: supple Respiratory: lungs clear, normal breath sounds Cardiovascular #1: regular rate, rhythm Cardiovascular #2: 2+ radial (R) Gastrointestinal: normal inspection, normal bowel sounds, no mass, non- distended, no guarding, no rebound, tenderness - Fairly diffuse Musculoskeletal: back normal, gait/station normal, normal range of motion Neurologic: alert, oriented x3, grossly normal Psychiatric: mood/affect normal Skin: normal inspection, warm/dry Medical Decision Making Diagnostic Impression: Primary Impression: Pancreatitis Qualified Codes: K85.90 - Acute pancreatitis without necrosis or infection, unspecified ER Course Patient presents with nausea and vomiting with some mild abdominal tenderness. Differential includes gastritis, gastroenteritis, pancreatitis amongst others. The patient will be evaluated with labs. The patient will receive Reglan, Benadryl and Pepcid with IV hydration. Labs significant for elevated lipase. Normal WBC, H/H. CMP normal. Patient sleeping soundly after treatment. Due to elevated lipase, patient admitted to Dr. Carrizales. Laboratory Tests Test 08/04/18 06:51 White Blood Count 6.3 K/UL (4.8-10.8) Red Blood Count 5.20 M/UL (4.70-6.10) Hemoglobin 14.4 G/DL (14.2-18.0) Hematocrit 44.8 % (42.0-52.0) Mean Corpuscular Volume 86 FL (80-99) Mean Corpuscular Hemoglobin 27.7 PG (27.0-31.0) Mean Corpuscular Hemoglobin Concent 32.1 G/DL (32.0-36.0) Red Cell Distribution Width 12.8 % (11.6-14.8) Platelet Count 300 K/UL (150-450) Mean Platelet Volume 6.4 FL (6.5-10.1) L Neutrophils (%) (Auto) 62.9 % (45.0-75.0) Lymphocytes (%) (Auto) 26.2 % (20.0-45.0) Monocytes (%) (Auto) 7.0 % (1.0-10.0) Eosinophils (%) (Auto) 3.2 % (0.0-3.0) H Basophils (%) (Auto) 0.8 % (0.0-2.0) Prothrombin Time 11.2 SEC (9.30-11.50) Prothrombin Time INR 1.1 (0.9-1.1) PTT 28 SEC (23-33) Urine Color Yellow Urine Appearance Slightly cloudy Urine pH 8 (4.5-8.0) Urine Specific [place] 1.010 (1.005-1.035) Urine Protein Negative (NEGATIVE) Urine Glucose (UA) Negative (NEGATIVE) Urine Ketones Negative (NEGATIVE) Urine Blood Negative (NEGATIVE) Urine Nitrite Negative (NEGATIVE) Urine Bilirubin Negative (NEGATIVE) Urine Urobilinogen 1 MG/DL (0.0-1.0) H Urine Leukocyte Esterase 1+ (NEGATIVE) H Urine RBC 0 /HPF (0 - 0) Urine WBC 0-2 /HPF (0 - 0) Urine Squamous Epithelial Cells Occasional /LPF Urine Amorphous Sediment Moderate /LPF (NONE) H Urine Bacteria Occasional /HPF (NONE) Sodium Level 137 MMOL/L (136-145) Potassium Level 3.7 MMOL/L (3.5-5.1) Chloride Level 101 MMOL/L (98-107) Carbon Dioxide Level 32 MMOL/L (21-32) Anion Gap 5 mmol/L (5-15) Blood Urea Nitrogen 7 mg/dL (7-18) Creatinine 1.2 MG/DL (0.55-1.30) Estimate Glomerular Filtration Rate > 60 mL/min (>60) Glucose Level 98 MG/DL (74-106) Calcium Level 9.4 MG/DL (8.5-10.1) Total Bilirubin 0.4 MG/DL (0.2-1.0) Aspartate Amino Transferase (AST) 22 U/L (15-37) Alanine Aminotransferase (ALT) 26 U/L (12-78) Alkaline Phosphatase 116 U/L (46-116) Total Creatine Kinase 300 U/L (26-308) Troponin I 0.000 ng/mL (0.000-0.056) Total Protein 8.0 G/DL (6.4-8.2) Albumin 3.8 G/DL (3.4-5.0) Globulin 4.2 g/dL Albumin/Globulin Ratio 0.9 (1.0-2.7) L Lipase 1126 U/L (73-393) H Urine Opiates Screen Negative (NEGATIVE) Urine Barbiturates Screen Negative (NEGATIVE) Phencyclidine (PCP) Screen Negative (NEGATIVE) Urine Amphetamines Screen Negative (NEGATIVE) Urine Benzodiazepines Screen Negative (NEGATIVE) Urine Cocaine Screen Negative (NEGATIVE) Urine Marijuana (THC) Screen Positive (NEGATIVE) H Status: improved Samuel Goins MD Aug 04, 2018 06:53
[2018-08-04 07:05] LABS: BASOPHILS % (AUTO) 0.8 % (0.0-2.0); EOSINOPHILS % (AUTO) 3.2 % (0.0-3.0); HEMATOCRIT 44.8 % (42.0-52.0); HEMOGLOBIN 14.4 G/DL (14.2-18.0); LYMPHOCYTES % (AUTO) 26.2 % (20.0-45.0); MEAN CORPUSCULAR VOLUME 86 FL (80-99); NEUTROPHILS % (AUTO) 62.9 % (45.0-75.0); PLATELET COUNT 300 K/UL (150-450); RED CELL DISTRIBUTION WIDTH 12.8 % (11.6-14.8); WHITE BLOOD COUNT 6.3 K/UL (4.8-10.8)
[2018-08-04 07:08] LABS: APPEARANCE,URINE SLIGHTLY CLOUDY; BILIRUBIN, URINE NEGATIVE (NEGATIVE); GLUCOSE, URINE (UA) NEGATIVE (NEGATIVE); KETONES,URINE NEGATIVE (NEGATIVE); LEUKOCYTE ESTERASE ,URINE 1+ (NEGATIVE); NITRITE,URINE NEGATIVE (NEGATIVE); PH,URINE 8 (4.5-8.0); PROTEIN,URINE NEGATIVE (NEGATIVE); UROBILINOGEN,URINE 1 MG/DL (0.0-1.0)
[2018-08-04 07:13] LABS: ANION GAP 5 mmol/L (5-15); BLOOD UREA NITROGEN 7 mg/dL (7-18); CALCIUM 9.4 MG/DL (8.5-10.1); CARBON DIOXIDE 32 MMOL/L (21-32); CHLORIDE 101 MMOL/L (98-107); CREATININE 1.2 MG/DL (0.55-1.30); INR 1.1 (0.9-1.1); POTASSIUM 3.7 MMOL/L (3.5-5.1); SODIUM 137 MMOL/L (136-145)
[2018-08-04 07:17] LABS: ALANINE AMINOTRANSFERASE 26 U/L (12-78); ALBUMIN 3.8 G/DL (3.4-5.0); ALBUMIN/GLOBULIN RATIO 0.9 (1.0-2.7); ALKALINE PHOSPHATASE 116 U/L (46-116); ASPARTATE AMINO TRANSFERASE 22 U/L (15-37); BILIRUBIN,TOTAL 0.4 MG/DL (0.2-1.0); CREATINE KINASE 300 U/L (26-308)
[2018-08-04 07:19] LABS: COLOR,URINE YELLOW
[2018-08-04 08:46] VITALS: BP 100/72
[2018-08-04 10:34] VITALS: BP 138/64
[2018-08-04 11:00] VITALS: BP 136/93
[2018-08-04 12:00] VITALS: BP 132/85
[2018-08-04 13:17] VITALS: BP 138/64
[2018-08-04] MEDS ORDERED: D5 1/2NS 1,000 ML IV SCH ×2 (14:28→15:45)
[2018-08-04] MEDS ORDERED: Nitroglycerin Subl 0.4mg tab SL PRN (15:45)
[2018-08-04] MEDS ORDERED: Promethazine HCl 12.5 MG in NS 55 ML IV PRN (15:45)
[2018-08-04] MEDS ORDERED: Metoclopramide 10mg/2ml Inj IVP PRN (15:45)
[2018-08-04] MEDS ORDERED: Mylanta II UD 30ml ORAL PRN (15:45)
[2018-08-04] MEDS ORDERED: Promethazine HCl 25 MG in NS 55 ML IV PRN (15:45)
[2018-08-04] MEDS ORDERED: Morphine Sulfate 2mg/ml Inj IVP PRN (15:45)
[2018-08-04] MEDS ORDERED: Miralax 17gm pkt ORAL PRN (15:45)
[2018-08-04] MEDS ORDERED: LORazepam Inj 2mg/ml 1ml IV PRN (15:45)
[2018-08-04] MEDS ORDERED: Heparin 5000 units/ml inj SUBQ SCH (21:00)
[2018-08-05] MEDS ORDERED: Pantoprazole Inj IV SCH (09:00)
--- NOTE | 2018-08-06 07:41 | Discharge Summary ---
Discharge Summary Discharge Summary _ DATE OF ADMISSION: 08/04/2018 DATE OF DISCHARGE: 08/04/2018. Patient signed AGAINST MEDICAL ADVICE REASON FOR ADMISSION: 47 years old male with past medical history of pancreatitis, asthma, depression and anxiety, presented to emergency department complaining of nausea ,vomiting, abdominal discomfort. Laboratory workup revealed no leukocytosis, stable hemoglobin and hematocrit. Stable electrolytes. BUN 7 creatinine 1.2. AST 22 ALT 26. Lipase 1126. Urine toxicology screen was positive for marijuana. Patient had recent CT abdomen/pelvis done on 07/29 which was unremarkable. Patient admitted with diagnosis of acute pancreatitis HOSPITAL COURSE: Patient admitted to medical surgical floor. Patient kept nothing by mouth and started on IV fluids. Pain management was addressed. Antiemetics provided as needed. GI prophylaxis provided. GI consult was requested. Abdominal ultrasound was ordered. Patient was noncompliant with NPO status and decided to sign AGAINST MEDICAL ADVICE . The risks and consequences of signing AGAINST MEDICAL ADVICE were discussed with patient in detail. Patient verbalized understanding, nevertheless signed AMA form and left. FINAL DIAGNOSES: Acute pancreatitis I have been assigned to dictate discharge summary for this account. I was not involved in the patient's management. Mini Marte [employer] Aug 06, 2018 07:41
== END 2018-08-04 14:55 | disposition left against medical advice (07) | DRG 282 ==
LOC: EMR 07:00 → 3E 09:01 → EDBEDREQ 09:48 → UNDODISIN 14:55
DX: K85.90 Acute pancreatitis without necrosis or infection, unspecified (principal); F41.8 Other specified anxiety disorders; J45.909 Unspecified asthma, uncomplicated; Z88.0 Allergy status to penicillin
CPT/HCPCS: 36415; 80053; 80307; 81003; 82550; 83690; 84484; 85025; 85610; 85730; 96361; 96374; 96375; 99285; J2765

== ENCOUNTER 2018-08-20 03:39 | Emergency (ER) | payer MEDICAID ==
[~2018-08-20] VITALS: Ht 182.9 cm; Wt 95.3 kg
[2018-08-20 03:47] VITALS: BP 120/84
[2018-08-20] MEDS ORDERED: IBUPROFEN600 MG ORAL (04:04)
[2018-08-20 04:05] VITALS: BP 120/84
--- NOTE | 2018-08-20 04:05 | Emergency Room Report ---
History of Present Illness General Chief Complaint: Flu Like Symptoms Source: Patient Present Illness HPI Is a 48-year-old male with a history of pancreatitis. He presents with chief complaint of cough and cold symptoms. His been ongoing for the last 2 days. Interestingly, he was in the waiting room since 8 PM and finally decided checked in. He had done this before after discharge will be sitting in the waiting room for several hours. He denies being homeless. No nausea no vomiting. No fever or chills. Has cough and congestion. Allergies: Coded Allergies: PENICILLINS (Verified Allergy, Unknown, 07/22/18) Patient History Past Medical History: see triage record, old chart reviewed Past Surgical History: none Pertinent Family History: none Social History: Denies: smoking Immunizations: other Reviewed Nursing Documentation: PMH: Agreed; PSxH: Agreed Nursing Documentation-PMH Past Medical History: No History, Except For Hx Cardiac Problems: No Hx Hypertension: No Hx Pacemaker: No Hx Asthma: Yes Hx COPD: No Hx Diabetes: No Hx Cancer: No Hx Gastrointestinal Problems: No Hx Dialysis: No Hx Neurological Problems: Yes Hx Cerebrovascular Accident: No Hx Seizures: No Hx Headaches: Yes Review of Systems Eye: Denies: eye pain, blurred vision ENT: Reports: nose congestion; Denies: ear pain, throat swelling Respiratory: Denies: cough, shortness of breath Cardiovascular: Denies: chest pain, palpitations Gastrointestinal: Denies: abdominal pain, diarrhea, nausea, vomiting Musculoskeletal: Denies: back pain, joint pain Skin: Denies: rash Neurological: Denies: headache, numbness Endocrine: Denies: increased thirst, increased urine Hematologic/Lymphatic: Denies: easy bruising All Other Systems: negative except mentioned in HPI Physical Exam Vital Signs Date Time Temp Pulse Resp B/P (MAP) Pulse Ox O2 Delivery O2 Flow Rate FiO2 08/20/18 03:42 97.5 91 15 120/84 99 Room Air vital stable Sp02 EP Interpretation: reviewed, normal General Appearance: well appearing, no apparent distress, alert Head: normocephalic, atraumatic Eyes: bilateral eye PERRL, bilateral eye EOMI ENT: hearing grossly normal, normal pharynx, uvula midline - Elongated Neck: full range of motion, supple, no meningismus Respiratory: chest non-tender, lungs clear, normal breath sounds Cardiovascular #1: regular rate, rhythm, no murmur Gastrointestinal: normal bowel sounds, non tender, no mass, no organomegaly, no bruit, non-distended Musculoskeletal: back normal, gait/station normal, normal range of motion Psychiatric: mood/affect normal Skin: warm/dry Medical Decision Making Diagnostic Impression: Primary Impression: Viral syndrome ER Course Patient presents with viral symptoms. Even know he said is not homeless suspect that he is since his been sitting in the waiting room for 8 hours. We' ll discharge home. Last Vital Signs Date Time Temp Pulse Resp B/P (MAP) Pulse Ox O2 Delivery O2 Flow Rate FiO2 08/20/18 03:47 91 15 Room Air 08/20/18 03:47 97.5 120/84 99 Status: improved Disposition: HOME, SELF-CARE Condition: Stable Scripts Ibuprofen* (MOTRIN*) 600 Mg Tablet 600 MG ORAL THREE TIMES A DAY, #30 TAB 0 Refills Prov: Yvon Jenkins MD 08/20/18 Referrals: [facility],REFERRING (PCP) Additional Instructions: Follow-up with your doctor in 7 days. Return if worse. Yvon Jenkins MD Aug 20, 2018 04:05
== END 2018-08-20 04:05 | disposition home or self-care (01) ==
LOC: EMR 04:00
DX: B34.9 Viral infection, unspecified (principal); R05 Cough; Z88.0 Allergy status to penicillin
CPT/HCPCS: 99282

== ENCOUNTER 2018-11-27 01:06 | Emergency (ER) | payer MEDICAID ==
[~2018-11-27] VITALS: Ht 182.9 cm; Wt 94.3 kg
[~2018-11-27 01:06] MED LIST changes: +IBUPROFEN600 MG ORAL
[2018-11-27] MEDS ORDERED: NKM (01:18)
[2018-11-27] MEDS ORDERED: Lidocaine 2% Visc 15ml soln ORAL ONE ×2 (01:45→02:15)
[2018-11-27 01:50] VITALS: BP 119/76
--- NOTE | 2018-11-27 01:50 | NUR ---
ED Nurse Note: Patient presents to ED c/o toothache for 1 week. Patient states he has a chipped tooth on the bottom left side of the mouth. Patient reports 10/10 pain. Patient AOx4, VSS, ambulatory with steady gait, no s/s of acute distress noted at this time. Patient seen by SHAQUILLED at bedside.
[2018-11-27] MEDS ORDERED: LIDOCAINE VISC100 ML ORAL (01:53)
[2018-11-27] MEDS ORDERED: ZITHROMAX250 MG ORAL (01:53)
[2018-11-27] MEDS ORDERED: Lidocaine 2% Visc 15ml soln ONE (02:03)
[2018-11-27 02:10] VITALS: BP 119/76
--- NOTE | 2018-11-27 02:11 | NUR ---
ED Nurse Note: Patient cleared for discharge by [facility]. Patient AOx4, VSS, ambulatory with steady gait, no s/s of acute distress noted at this time. patient provided with discharge instructions and medication prescriptions. Patient verbalized understanding. patient ID band removed. Patient took all personal belongings with him. Patient instructed to follow up with a dentist. patient stated he was going to take the bus home.
--- NOTE | 2018-11-28 07:39 | Emergency Room Report ---
History of Present Illness General Chief Complaint: Toothache Source: Patient Present Illness HPI Patient is a 48-year-old male brought in by self after increased pain to his tooth. Patient reports having recent injury to his tooth states he cracked it. He denies any fever. He reported having increased pain to the left lower molar. He states he has not seen a dentist. Patient had been taking ibuprofen and Tylenol without improvement. Allergies: Coded Allergies: PENICILLINS (Verified Allergy, Unknown, 07/22/18) Patient History Past Medical History: see triage record Reviewed Nursing Documentation: PMH: Agreed; PSxH: Agreed Nursing Documentation-PMH Past Medical History: No History, Except For Hx Cardiac Problems: No Hx Hypertension: No Hx Pacemaker: No Hx Asthma: Yes Hx COPD: No Hx Diabetes: No Hx Cancer: No Hx Gastrointestinal Problems: No Hx Dialysis: No Hx Neurological Problems: Yes Hx Cerebrovascular Accident: No Hx Seizures: No Hx Headaches: Yes Review of Systems All Other Systems: negative except mentioned in HPI Physical Exam Vital Signs Date Time Temp Pulse Resp B/P (MAP) Pulse Ox O2 Delivery O2 Flow Rate FiO2 11/27/18 01:15 97.9 91 16 119/76 97 Room Air General Appearance: well appearing, no apparent distress, alert, GCS 15 Head: normocephalic, atraumatic ENT: hearing grossly normal, normal voice, other - dental fracture to molar left side, no swelling Neck: full range of motion, supple Respiratory: no respiratory distress, speaking full sentences Cardiovascular #1: normal inspection Musculoskeletal: normal inspection, no calf tenderness Neurologic: normal inspection, alert, oriented x3, responsive, normal gait Psychiatric: mood/affect normal Skin: no rash Medical Decision Making Diagnostic Impression: Primary Impression: Dental injury ER Course Patient presented for dental pain. Differential diagnosis included but was not limited to trigeminal neuralgia, dental abscess, dry socket, osteomyelitis, nerve injury. The patient was noted to have a benign exam. There is no evidence of infection. The patient is advised to follow up with dentist in 1- 2 days. Patient is advised to return if any worsening condition or if any changes in status that are concerning. He was given prescription for medications for symptomatic treatment. Patient was given prescription for oral antibiotics. Last Vital Signs Date Time Temp Pulse Resp B/P (MAP) Pulse Ox O2 Delivery O2 Flow Rate FiO2 11/27/18 02:10 97.9 91 16 119/76 97 Room Air Status: improved Disposition: HOME, SELF-CARE Condition: Stable Scripts Lidocaine HCl 2% Viscous (Lidocaine HCl 2% Viscous) 100 Ml Solution 15 ML ORAL QID, #100 ML Prov: Jim Dominguez MD 11/27/18 Azithromycin* (ZITHROMAX*) 250 Mg Tablet 250 MG ORAL DAILY, #6 TAB 0 Refills Take two tables once daily for 1 day, then one tablet once daily for 4 days. Prov: Jim Dominguez MD 11/27/18 [facility]errals[facility] (PCP) Patient Instructions: Dental Pain Jim Dominguez MD Nov 28, 2018 07:39
== END 2018-11-27 02:10 | disposition home or self-care (01) ==
LOC: EMR 01:50
DX: S02.5XXA Fracture of tooth (traumatic), initial encounter for closed fracture (principal); X58.XXXA Exposure to other specified factors, initial encounter; Y92.9 Unspecified place or not applicable
CPT/HCPCS: 99282

== ENCOUNTER 2019-04-30 01:51 | Emergency (ER) | payer MEDICAID ==
[~2019-04-30] VITALS: Ht 182.9 cm; Wt 92.5 kg
[~2019-04-30 01:51] MED LIST changes: +CLINDAMYCIN HC300 MG ORAL; +LIDOCAINE VISC100 ML ORAL; +NKM; +ZITHROMAX250 MG ORAL
[2019-04-30 02:00] VITALS: BP 130/88
--- NOTE | 2019-04-30 02:00 | NUR ---
ED Nurse Note: Patient walked into ED c/o lower back pain, states that he was picking up some boxes to which he felt sharp pain, reports of 10/10 back pain, site is clean. patient is alert and oriented x4, ambulatory with a steady gait, VSS
--- NOTE | 2019-04-30 02:11 | Emergency Room Report ---
History of Present Illness General Chief Complaint: Lower Back Pain or Injury Source: Patient Present Illness HPI 48-year-old male presents with left lower back pain achy in nature, severity is moderate, started 3 hours prior to arrival, patient states the pain is worse with movement alleviated with rest, patient was moving boxes earlier today for his mother, no fever no chills, no perianal numbness, no urinary incontinence/ retention, patient presents for evaluation Allergies: Coded Allergies: PENICILLINS (Verified Allergy, Unknown, 07/22/18) Patient History Social History: Reports: smoking Reviewed Nursing Documentation: PMH: Agreed; PSxH: Agreed Nursing Documentation-PMH Past Medical History: No History, Except For Hx Cardiac Problems: No Hx Hypertension: No Hx Pacemaker: No Hx Asthma: Yes Hx COPD: No Hx Diabetes: No Hx Cancer: No Hx Gastrointestinal Problems: No Hx Dialysis: No Hx Neurological Problems: Yes Hx Cerebrovascular Accident: No Hx Seizures: No Hx Headaches: Yes Review of Systems All Other Systems: negative except mentioned in HPI Physical Exam Vital Signs Date Time Temp Pulse Resp B/P (MAP) Pulse Ox O2 Delivery O2 Flow Rate FiO2 04/30/19 01:54 98.4 81 18 138/91 (107) 99 Room Air Sp02 EP Interpretation: reviewed, normal General Appearance: well appearing, no apparent distress, alert Head: normocephalic, atraumatic Eyes: bilateral eye PERRL, bilateral eye EOMI ENT: uvula midline, moist mucus membranes Neck: supple, thyroid normal, supple/symm/no masses Respiratory: lungs clear, no respiratory distress, no retraction, no accessory muscle use Cardiovascular #1: normal peripheral pulses, regular rate, rhythm, no edema, no gallop, no murmur Gastrointestinal: non tender, soft, no guarding, no rebound Musculoskeletal: other - Tenderness to palpation left lower back, no midline tenderness, 5 out of 5 strength ankle flexion extension, knee flexion extension , hip flexion extension, 2+ reflexes patella, Achilles, sensation grossly intact , gait intact Neurologic: alert, oriented x3 Psychiatric: mood/affect normal Skin: no rash, warm/dry Medical Decision Making Diagnostic Impression: Primary Impression: Back pain ER Course The patient presents with acute onset of back pain after lifting boxes. Clinically this patient can be ruled out for serious pathology given there is a completely normal neurological exam, no history of IV drug use, and no history of bowel or bladder incontinence, no perianal numbness/tingling, no constipation or urinary retention. Once the patient's pain was adequately controlled, the patient was able to ambulate and be discharged in stable condition with anticipatory guidance provided. Last Vital Signs Date Time Temp Pulse Resp B/P (MAP) Pulse Ox O2 Delivery O2 Flow Rate FiO2 04/30/19 01:54 98.4 81 18 138/91 (107) 99 Room Air Disposition: HOME, SELF-CARE Scripts Methocarbamol* (ROBAXIN-750*) 750 Mg Tablet 750 MG PO QID, #28 TAB 0 Refills Prov: Misha Mcneill MD 04/30/19 Naproxen* (NAPROSYN*) 250 Mg Tablet 250 MG ORAL BID PRN for For Pain, #20 TAB 0 Refills Prov: Misha Mcneill MD 04/30/19 Referrals: [facility] ([facility]P) [facility] Patient Instructions: Lumbosacral Strain, Back Pain, Adult Additional Instructions: The patient was provided with discharge instructions, notified to follow-up with a primary care doctor and or specialist in the next 24-48 hours, and to return to the ED if they have worsening of their symptoms. Please note that this report is being documented using [employer] technology. This can lead to erroneous entry secondary to incorrect interpretation by the dictating instrument. Misha Mcneill MD Apr 30, 2019 02:11
[2019-04-30] MEDS ORDERED: NAPROXEN250 MG ORAL (02:12)
[2019-04-30] MEDS ORDERED: ROBAXIN-750750 MG PO (02:12)
[2019-04-30] MEDS ORDERED: Dexamethasone 4mg/ml vial IM ONE (02:15)
[2019-04-30] MEDS ORDERED: Ketorolac 60mg Inj IM ONE (02:15)
[2019-04-30] MEDS ORDERED: oxyCODONE HCL/Acetaminophen 5/325mg ORAL ONE (02:15)
[2019-04-30 03:45] VITALS: BP 135/80
--- NOTE | 2019-04-30 03:45 | NUR ---
ER DISCHARGE NOTE: Patient is cleared to be discharged per ERMD, pt is aox4, on room air, with stable vital signs. pt was given dc and prescription instructions, pt was able to verbalize understanding, pt id band removed without complications. pt is able to ambulate with steady gait. pt took all belongings.
== END 2019-04-30 03:45 | disposition home or self-care (01) ==
LOC: EMR 02:04
DX: M54.5 Low back pain (principal); J45.909 Unspecified asthma, uncomplicated; F17.200 Nicotine dependence, unspecified, uncomplicated; Z88.0 Allergy status to penicillin
CPT/HCPCS: 96372; 99283; J1100

== ENCOUNTER 2020-05-09 01:15 | Emergency (ER) | payer MEDICAID ==
[~2020-05-09] VITALS: Ht 185.4 cm; Wt 97.5 kg
[~2020-05-09 01:15] MED LIST changes: +NAPROXEN250 MG ORAL; +ROBAXIN-750750 MG PO
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
[2020-05-09] MEDS ORDERED: HYDROcodone/Acetamin 5/325 tab ORAL ONE (01:45)
[2020-05-09 02:15] VITALS: BP 131/84
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
[2020-05-09] MEDS ORDERED: HYDROCODON-ACE1 EA15 ORAL (02:37)
[2020-05-09 03:05] VITALS: BP 119/80
--- NOTE | 2020-05-09 03:15 | NUR ---
ER DISCHARGE NOTE: Patient is cleared to be discharged per ERMD, pt is aox4, on room air, with stable vital signs. pt was given dc and prescription instructions, pt was able to verbalize understanding, pt id band and iv site removed without complications. pt is able to ambulate with steady gait. pt took all belongings.
[2020-05-09 03:20] VITALS: BP 119/80
== END 2020-05-09 03:20 | disposition home or self-care (01) ==
LOC: EMR 01:29
DX: S09.90XA Unspecified injury of head, initial encounter (principal); S02.2XXA Fracture of nasal bones, initial encounter for closed fracture; Z88.0 Allergy status to penicillin; W50.1XXA Accidental kick by another person, initial encounter; Y92.9 Unspecified place or not applicable
CPT/HCPCS: 70450; 70486; Z7502; 99284

== ENCOUNTER 2020-05-12 07:43 | Emergency (ER) | payer MEDICAID ==
[~2020-05-12] VITALS: Ht 185.4 cm; Wt 97.5 kg
[~2020-05-12 07:43] MED LIST changes: +HYDROCODON-ACE1 EA15 ORAL
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
[2020-05-12] MEDS ORDERED: PROAIR HFA8.5 GM INH (08:00)
--- NOTE | 2020-05-12 08:05 | NUR ---
ED Nurse Note: Pt cleared by health care Provider for discharge. DC instructions/prescription was given and explained to pt and verbalized understanding of teachings. All medical deviecs such as ID band removed. Pt is AAO x4, ambulatory and left with all personal belongings.
[2020-05-12 10:50] VITALS: BP 119/73
== END 2020-05-12 08:20 | disposition home or self-care (01) ==
LOC: EMR 08:18
DX: Z76.0 Encounter for issue of repeat prescription (principal); F17.200 Nicotine dependence, unspecified, uncomplicated; Z88.0 Allergy status to penicillin; S09.90XD Unspecified injury of head, subsequent encounter; X58.XXXD Exposure to other specified factors, subsequent encounter; J44.9 Chronic obstructive pulmonary disease, unspecified
CPT/HCPCS: 99282

== ENCOUNTER 2020-06-01 08:49 | Emergency (ER) | payer MEDICAID ==
[~2020-06-01] VITALS: Ht 185.4 cm; Wt 93.9 kg
[~2020-06-01 08:49] MED LIST changes: +PROAIR HFA8.5 GM INH; +ZOFRAN4 MG ORAL
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
--- NOTE | 2020-06-01 09:10 | NUR ---
ED Nurse Note: Lt upper forehead bump noted.
[2020-06-01] MEDS ORDERED: Methocarbamol 750mg tab ORAL ONE (09:15)
[2020-06-01] MEDS ORDERED: Acetaminophen 500mg (ES) tab ORAL ONE (09:15)
--- NOTE | 2020-06-01 09:30 | NUR ---
ED Nurse Note: x-ray at bedside.
[2020-06-01 09:34] VITALS: BP 124/74
--- NOTE | 2020-06-01 09:39 | NUR ---
ED Nurse Note: pt taken to CT in stable condition.
[2020-06-01] MEDS ORDERED: ROBAXIN-750750 MG PO (09:45)
[2020-06-01] MEDS ORDERED: IBUPROFEN600 M1 ORAL (09:45)
[2020-06-01 09:50] LABS: BASOPHILS % (AUTO) 1.1 % (0.0-2.0); EOSINOPHILS % (AUTO) 2.7 % (0.0-3.0); HEMATOCRIT 43.5 % (42.0-52.0); HEMOGLOBIN 13.9 G/DL (14.2-18.0); LYMPHOCYTES % (AUTO) 15.6 % (20.0-45.0); MEAN CORPUSCULAR VOLUME 89 FL (80-99); MONOCYTES % (AUTO) 9.7 % (1.0-10.0); NEUTROPHILS % (AUTO) 70.9 % (45.0-75.0); PLATELET COUNT 255 K/UL (150-450); RED BLOOD COUNT 4.91 M/UL (4.70-6.10); RED CELL DISTRIBUTION WIDTH 14.6 % (11.6-14.8); WHITE BLOOD COUNT 6.4 K/UL (4.8-10.8)
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
--- NOTE | 2020-06-01 09:56 | NUR ---
ED Nurse Note: pt came back from CT in stable condition.
[2020-06-01 09:59] LABS: ANION GAP 5 mmol/L (5-15); BLOOD UREA NITROGEN 10 mg/dL (7-18); CALCIUM 9.4 MG/DL (8.5-10.1); CARBON DIOXIDE 31 MMOL/L (21-32); CHLORIDE 102 MMOL/L (98-107); CREATININE 1.3 MG/DL (0.55-1.30); POTASSIUM 4.9 MMOL/L (3.5-5.1); SODIUM 138 MMOL/L (136-145)
[2020-06-01 10:08] LABS: ALANINE AMINOTRANSFERASE 36 U/L (12-78); ALBUMIN 3.3 G/DL (3.4-5.0); ALBUMIN/GLOBULIN RATIO 1.1 (1.0-2.7); ALKALINE PHOSPHATASE 74 U/L (46-116); ASPARTATE AMINO TRANSFERASE 6 U/L (15-37); BILIRUBIN,TOTAL 0.2 MG/DL (0.2-1.0)
--- NOTE | 2020-06-01 10:35 | Diagnostic Imaging Report ---
Indications: Headache, head trauma Technique: Spiral acquisitions obtained through the brain. Angled axial and coronal 5 x 5 mm slices were reconstructed. Total dose length product 1125 mGycm. CTDI vol(s) 53 mGy. Dose reduction achieved using automated exposure control Comparison: 05/09/2020 Findings: No acute intracranial hemorrhage or edema. No mass effect nor midline shift. Normal gamez-white differentiation. Normal size ventricles and extra axial CSF spaces. Visualized orbits are unremarkable. The ethmoids demonstrate minimal mucosal disease. The mastoids are clear. The calvarium is intact. There is no significant interim change Impression: Negative The CT scanner at [facility] is accredited by the [employer] and the scans are performed using protocols designed to limit radiation exposure to as low as reasonably achievable to attain images of sufficient resolution adequate for diagnostic evaluation.
--- NOTE | 2020-06-01 10:40 | Diagnostic Imaging Report ---
Indication: Right-sided neck pain, status post trauma Technique: Spiral acquisitions obtained through the cervical spine. No IV contrast utilized. Multiplanar reconstructions were generated. Total dose length product 620 mGycm. CTDIvol(s) 20 mGy. Dose reduction achieved using automated exposure control. Comparison: none Findings: Bony alignment is normal. Vertebral body heights and disc spaces are preserved. No prevertebral soft tissue swelling. No acute fractures. No dislocations. At C2-3, there is mild right neural foraminal stenosis due to mild facet arthrosis and uncinate hypertrophy. At C3-4, there is borderline narrowing of the spinal canal due to short pedicles. At C4-5, there is mild narrowing of the spinal canal due to short pedicles and very mild central posterior disc protrusion. At C5-6, there is mild narrowing of the spinal canal due to short pedicles. No significant disc bulge or protrusion or neural foraminal narrowing. At C6-7, there is very mild degenerative disc narrowing. There is mild narrowing spinal canal due to short pedicles. Included extra spinal soft tissues are unremarkable. Impression: No acute bony trauma Congenitally mildly narrow spinal canal at multiple levels The CT scanner at [facility] is accredited by the [employer] and the scans are performed using protocols designed to limit radiation exposure to as low as reasonably achievable to attain images of sufficient resolution adequate for diagnostic evaluation.
[2020-06-01 10:50] VITALS: BP 123/71
--- NOTE | 2020-06-01 12:49 | Diagnostic Imaging Report ---
Indication: Abnormal chest sounds Technique: One view of the chest Comparison: none Findings: Lungs and pleural spaces are clear. Heart size is normal. Impression: No acute process
== END 2020-06-01 10:52 | disposition home or self-care (01) ==
LOC: EMR 09:45
DX: S09.90XA Unspecified injury of head, initial encounter (principal); S13.4XXA Sprain of ligaments of cervical spine, initial encounter; M62.838 Other muscle spasm; T14.8XXA Other injury of unspecified body region, initial encounter; W22.8XXA Striking against or struck by other objects, initial encounter; Y92.9 Unspecified place or not applicable; F17.210 Nicotine dependence, cigarettes, uncomplicated; Z88.0 Allergy status to penicillin
CPT/HCPCS: 36415; 70450; 71045; 72125; 80053; 84484; 85025; 93005; Z7502; 99284

== ENCOUNTER 2020-07-19 02:15 | Emergency (ER) | payer MEDICAID ==
[~2020-07-19] VITALS: Ht 185.4 cm; Wt 98.9 kg
[~2020-07-19 02:15] MED LIST changes: +IBUPROFEN600 M1 ORAL
--- NOTE | 2020-07-19 02:29 | Emergency Room Report ---
History of Present Illness General Chief Complaint: Cough Source: Patient Present Illness HPI Patient is a 49-year-old male presents for increased cough. Prior history of asthma. States he ran out of his inhaler. Denies taking any steroids in the past. States he intermittently uses inhaler. Reports being a smoker. Denies any fever. Cough is nonproductive. Allergies: Coded Allergies: PENICILLINS (Verified Allergy, Unknown, 07/22/18) COVID-19 Screening Contact w/high risk pt: No Experienced COVID-19 symptoms?: No Patient History Past Medical History: see triage record Reviewed Nursing Documentation: PMH: Agreed; PSxH: Agreed Nursing Documentation-PMH Hx Cardiac Problems: No Hx Hypertension: No Hx Pacemaker: No Hx Asthma: Yes Hx COPD: No Hx Diabetes: No Hx Cancer: No Hx Gastrointestinal Problems: No Hx Dialysis: No Hx Neurological Problems: Yes Hx Cerebrovascular Accident: No Hx Seizures: No Hx Headaches: Yes Review of Systems All Other Systems: negative except mentioned in HPI Physical Exam Sp02 EP Interpretation: reviewed, normal General Appearance: normal inspection, alert, GCS 15, non-toxic, Chronically Ill Head: atraumatic ENT: normal ENT inspection, hearing grossly normal, normal voice Neck: normal inspection, full range of motion, supple, no bony tend Respiratory: normal inspection, no respiratory distress, no retraction, wheezing Cardiovascular #1: regular rate, rhythm, edema Gastrointestinal: normal inspection, normal bowel sounds, non tender, soft, no guarding, no hernia Genitourinary: no CVA tenderness Musculoskeletal: normal inspection, back normal, normal range of motion Neurologic: alert, motor strength/tone normal, cut out marker III-XII nml as tested, oriented x3, responsive, speech normal, normal inspection Psychiatric: normal inspection, judgement/insight normal, mood/affect normal Medical Decision Making Diagnostic Impression: Primary Impression: Asthma ER Course Patient presented for cough. Differential diagnosis include was not limited to asthma , coronavirus infection, pneumonia, bronchitis among others. Patient has a benign exam and does not appear to require any imaging or laboratory testing at this time. Chest x-ray showed no evidence of acute process. Coronavirus testing was ordered. Coronavirus lab was negative. Patient was given breathing treatment and was noted to have improvement in wheezing. He was given prescription for albuterol. Does not appear to require steroids at this time. He was advised to follow-up with his primary care physician for recheck in 1 to 2 days. He is to return if worse. This medical record is generated with [employer] speed runner software. There may be some speed runner discrepancies related to use of this software Status: improved Disposition: HOME, SELF-CARE Condition: Stable Scripts Albuterol Sulfate* (PROAIR HFA*) 8.5 Gm Hfa.aer.ad 1 PUFF INH Q6H, #8.5 GM 0 Refills Prov: Jim Dominguez MD 07/19/20 Jim Dominguez MD Jul 19, 2020 02:29
[2020-07-19] MEDS ORDERED: Albuterol/Ipratropium 3ml neb HHN ONE (02:30)
--- NOTE | 2020-07-19 02:39 | NUR ---
ED Nurse Note: Patient walked in from home d/t SOB, states he has asthma and he ran out of his inhaler. Patient reports cough and runny nose for 4 days. Patient aao x 4 and ambulatory with steady gait. No c/o pain. Patient placed on alarm security or surveillance monitor. No acute distress noted.
[2020-07-19 02:40] VITALS: BP 134/72
--- NOTE | 2020-07-19 03:02 | Diagnostic Imaging Report ---
EXAM: XR Chest, 1 View CLINICAL HISTORY: SOB TECHNIQUE: Frontal view of the chest. COMPARISON: 06/01/20 FINDINGS: Lungs: Unremarkable. No consolidation. Pleural space: Unremarkable. No pneumothorax. Heart: Unremarkable. No cardiomegaly. Mediastinum: Unremarkable. Bones/joints: No acute abnormality IMPRESSION: 1. No acute cardiopulmonary disease. 2. If there is continued concern recommend frontal and lateral chest radiographs or CT.
[2020-07-19] MEDS ORDERED: PROAIR HFA8.5 GM INH ×2 (03:40)
[2020-07-19 04:24] VITALS: BP 123/79
--- NOTE | 2020-07-19 04:24 | NUR ---
ER DISCHARGE NOTE: Patient is cleared to be discharged per ERMD, pt is aox4, on room air, with stable vital signs. pt was given dc and prescription instructions, pt was able to verbalize understanding, pt id band removed. pt is able to ambulate with steady gait. pt took all belongings. pt stable upon discharge.
== END 2020-07-19 04:24 | disposition home or self-care (01) ==
LOC: EMR 02:30
DX: J45.909 Unspecified asthma, uncomplicated (principal); F17.200 Nicotine dependence, unspecified, uncomplicated; Z88.0 Allergy status to penicillin
CPT/HCPCS: 71045; 94640; U0002; Z7502; 99283; J7620

== ENCOUNTER 2020-08-28 03:46 | Emergency (ER) | payer MEDICAID ==
[~2020-08-28] VITALS: Ht 185.4 cm; Wt 96.6 kg
[2020-08-28 04:11] VITALS: BP 124/78
[2020-08-28] MEDS ORDERED: Ketorolac 60mg Inj IM ONE (04:15)
--- NOTE | 2020-08-28 05:04 | Emergency Room Report ---
History of Present Illness General Chief Complaint: Pain Source: Patient Present Illness HPI Patient is a 50-year-old male presents for increased low back pain. Reports having intermittent episodes of numbness to the right leg. Worse with prolonged sitting. Prior history of asthma. Taking steroid inhalers and albuterol. Denies any cough. Denies any shortness of breath currently. 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 COVID-19 Screening: Negative COVID-19 COVID-19 Testing Source: [facility] Patient History Reviewed Nursing Documentation: PMH: Agreed; PSxH: Agreed Nursing Documentation-PM Past Medical History: No History, Except For Hx Cardiac Problems: No Hx Hypertension: No Hx Pacemaker: No Hx Asthma: Yes Hx COPD: No Hx Diabetes: No Hx Cancer: No Hx Gastrointestinal Problems: No Hx Dialysis: No Hx Neurological Problems: Yes Hx Cerebrovascular Accident: No Hx Seizures: No Hx Headaches: Yes Review of Systems All Other Systems: negative except mentioned in HPI Physical Exam Vital Signs Date Time Temp Pulse Resp B/P (MAP) Pulse Ox O2 Delivery O2 Flow Rate FiO2 08/28/20 03:59 98.4 95 18 121/81 (94) 98 Room Air Sp02 EP Interpretation: reviewed, normal General Appearance: normal inspection, well appearing, no apparent distress, alert, GCS 15 Head: atraumatic ENT: normal ENT inspection, hearing grossly normal, normal voice Neck: normal inspection, full range of motion, supple, no bony tend Respiratory: normal inspection, lungs clear, normal breath sounds, no respiratory distress, no retraction, no wheezing Cardiovascular #1: regular rate, rhythm, no edema Gastrointestinal: normal inspection, normal bowel sounds, non tender, soft, no guarding, no hernia Genitourinary: no CVA tenderness Musculoskeletal: normal inspection, back normal, normal range of motion Neurologic: alert, 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 Differential diagnosis include was not limited to sciatica, radiculopathy, spinal stenosis among others. Because of complexity of patient's case imaging studies were ordered. Last Vital Signs Date Time Temp Pulse Resp B/P (MAP) Pulse Ox O2 Delivery O2 Flow Rate FiO2 08/28/20 04:11 98.2 80 18 124/78 98 Room Air Referrals: NON PHYSICIAN (PCP) Jim Dominguez MD Aug 28, 2020 05:04
[2020-08-28] MEDS ORDERED: ROBAXIN-750750 MG PO (05:34)
--- NOTE | 2020-08-28 05:42 | Diagnostic Imaging Report ---
EXAM: CT Lumbar Spine Without Intravenous Contrast CLINICAL HISTORY: PAIN TECHNIQUE: Axial computed tomography images of the lumbar spine without intravenous contrast. CTDI is 13.80 mGy and DLP is 576.50 mGy-cm. One or more of the following dose reduction techniques were used: automated exposure control, adjustment of the mA and/or kV according to patient size, use of iterative reconstruction technique. COMPARISON: No relevant prior studies available. FINDINGS: Vertebrae: No acute fracture. No malalignment. Lumbar vertebral body heights are preserved. Discs/spinal canal/neural foramina: No acute findings. No spinal canal stenosis. Disc spaces are preserved. Soft tissues: Probable 14 mm subcutaneous sebaceous cyst seen within the lower back. Note is made of liquid stool throughout the colon. Please correlate for symptoms of infectious/inflammatory enterocolitis. IMPRESSION: No acute osseous abnormality.
[2020-08-28 05:47] VITALS: BP 132/74
[2020-08-28 06:02] LABS: APPEARANCE,URINE CLEAR; BILIRUBIN, URINE NEGATIVE (NEGATIVE); GLUCOSE, URINE (UA) NEGATIVE (NEGATIVE); KETONES,URINE 1+ (NEGATIVE); LEUKOCYTE ESTERASE ,URINE 1+ (NEGATIVE); NITRITE,URINE NEGATIVE (NEGATIVE); PH,URINE 5 (4.5-8.0); PROTEIN,URINE 1+ (NEGATIVE); UROBILINOGEN,URINE 1 MG/DL (0.0-1.0)
[2020-08-28 06:06] LABS: COLOR,URINE YELLOW
== END 2020-08-28 05:47 | disposition home or self-care (01) ==
LOC: EMR 04:04
DX: M54.5 Low back pain (principal); J45.909 Unspecified asthma, uncomplicated; Z88.0 Allergy status to penicillin
CPT/HCPCS: 72131; 81003; 96372; Z7502; 99284

== ENCOUNTER 2020-09-16 21:49 | Emergency (ER) | payer MEDICAID ==
[~2020-09-16] VITALS: Ht 185.4 cm; Wt 99.3 kg
--- NOTE | 2020-09-16 21:51 | NUR ---
ED Nurse Note: patient was called, not in a waiting room
[2020-09-16 22:10] VITALS: BP 122/76
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
--- NOTE | 2020-09-16 22:23 | Emergency Room Report ---
History of Present Illness General Chief Complaint: Shoulder Injury Source: Patient Present Illness HPI Disclaimer: Please note that this report is being documented using [employer] technology. This can lead to erroneous entry secondary to incorrect interpretation by the dictating instrument. HPI: 50-year-old male presents for evaluation of right shoulder and hand injury. The patient states he slipped on some slick tile falling down several stairs hitting his right shoulder and hyperextending his right thumb. He believes his right shoulder was dislocated as he felt a deformity and could not move it. His uncle was able to "reduce" the shoulder back into place. He is now able to move his shoulder but continued pain over the right shoulder and the right side of the neck. Denies head injury or loss conscious. Reports pain is swelling over the thumb. Denies pain in the wrist. Otherwise full range of motion and no pain in the remainder of the digits or the forearm or the elbow. No prior history of injury to either the hand or the elbow. No other injury reported. Did not take any medication prior to arrival. Pain exacerbated by movement. Relieved by rest. PMH: Denied PSH: Denied Allergies: Penicillin Social Hx: Denied drug or alcohol abuse 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 Testing performed NEUROLOGY SPECIALIST: No Nursing Documentation-PMH Hx Cardiac Problems: No Hx Hypertension: No Hx Pacemaker: No Hx Asthma: Yes Hx COPD: No Hx Diabetes: No Hx Cancer: No Hx Gastrointestinal Problems: No Hx Dialysis: No Hx Neurological Problems: Yes Hx Cerebrovascular Accident: No Hx Seizures: No Hx Headaches: Yes Review of Systems All Other Systems: negative except mentioned in HPI Physical Exam Vital Signs Date Time Temp Pulse Resp B/P (MAP) Pulse Ox O2 Delivery O2 Flow Rate FiO2 09/16/20 22:05 98.1 96 24 122/76 (91) 99 Room Air General: Awake and alert, no acute distress HEENT: NC/AT. EOMI. Resp: Normal work of breathing Skin: Intact. No abrasions, laceration or rash over the exposed skin MSK: Normal tone and bulk. Moving all extremities. No obvious deformity. No step-off of the right shoulder. Tender palpation over the right paraspinal muscle extending over the right trapezius. Tenderness palpation over the posterior and lateral aspect of the right shoulder. Intact sensation over the right deltoid. No tenderness at the elbow full range of motion on flexion extension supination and pronation. No tenderness at the wrist. Able to flex and extend without difficulty. There is swelling over the thenar eminence of the right thumb and pain in the anatomic snuffbox. Still able to flex and extend all digits. Sensation intact over the radial aspect ulnar aspect of all digits. Neuro: Awake and alert. Mentating appropriately Medical Decision Making ER Course 50-year-old male presents for evaluation of right shoulder and hand pain after a falling injury. Pain medication provided and x-rays obtained. No obvious fracture identified on the shoulder or hand views. No dislocations. Patient placed in a right shoulder immobilizer and thumb spica preformed cast on the right hand. Will follow up with PMD and orthopedics as needed. Instructed to return with new or worsening symptoms. Understands and agrees with this treatment plan. Other X-Ray Diagnostic Results Other X-Ray Diagnostic Results #1: X-Ray ordered: Right shoulder # of Views/Limited Vs Complete: Complete Indication: Pain EP Interpretation: Yes Interpretation: no dislocation, no soft tissue swelling, no fractures Impression: No acute disease Electronically Signed by: Electronically signed by Dr. Juan R Rosen MD Other X-Ray Diagnostic Results #2: X-Ray ordered: Right hand # of Views/Limited Vs Complete: 3 View Indication: Pain EP Interpretation: Yes Interpretation: no dislocation, no fractures, other - Soft tissue swelling present over dorsum Impression: No acute disease Electronically Signed by: Electronically signed by Dr. Juan R Rosen MD Last Vital Signs Date Time Temp Pulse Resp B/P (MAP) Pulse Ox O2 Delivery O2 Flow Rate FiO2 09/16/20 22:05 98.1 96 24 122/76 (91) 99 Room Air Disposition: HOME, SELF-CARE Condition: Stable Scripts Ibuprofen* (MOTRIN*) 600 Mg Tablet 600 MG ORAL Q6H PRN for For Pain, #30 TAB 0 Refills Prov: Juan R Rosen MD 09/16/20 Methocarbamol* (ROBAXIN-750*) 750 Mg Tablet 750 MG PO QID, #28 TAB 0 Refills Prov: Juan R Rosen MD 09/16/20 Hydrocodone/Acetaminophen 5-325* (HYDROCODONE/ACETAMINOPHEN 5-325*) 1 Each Tablet 1 TAB ORAL Q6H PRN for For Pain, #10 TAB 0 Refills Prov: Juan R Rosen MD 09/16/20 Juan R Rosen MD Sep 16, 2020 22:23
--- NOTE | 2020-09-16 22:24 | NUR ---
ED Nurse Note: ERMD at bedside
[2020-09-16] MEDS ORDERED: Morphine Sulfate 2mg/ml Inj(IV/IM USE ONLY) IVP ONE (22:30)
--- NOTE | 2020-09-16 22:30 | NUR ---
ED Nurse Note: xray at bedside
[2020-09-16] MEDS ORDERED: ROBAXIN-750750 MG PO (22:37)
[2020-09-16] MEDS ORDERED: IBUPROFEN600 M1 ORAL (22:37)
[2020-09-16] MEDS ORDERED: HYDROCODON-ACE1 EA15 ORAL (22:37)
--- NOTE | 2020-09-16 22:38 | NUR ---
ED Nurse Note: all medications adminsitered, pt tolerated well no ss of distress noted. will continue to monitor.
--- NOTE | 2020-09-16 22:46 | NUR ---
ED Nurse Note: MATERIALS ENGINEER at bedside for immobilizer palcement.
--- NOTE | 2020-09-16 23:08 | Diagnostic Imaging Report ---
EXAM: XR Right Hand Complete, 3 or More Views CLINICAL HISTORY: INJ TECHNIQUE: Frontal, lateral and oblique views of the right hand. COMPARISON: No relevant prior studies available. FINDINGS: Bones/joints: Unremarkable. No acute fracture. No dislocation. Soft tissues: Unremarkable. No radiopaque foreign body. IMPRESSION: Normal right hand x-rays.
--- NOTE | 2020-09-16 23:12 | Diagnostic Imaging Report ---
INDICATION: Injury. COMPARISON: FINDINGS: 3 X views of the right shoulder are obtained. Bony structures are intact. Bone mineralization is within normal limits. No dislocation at the glenohumeral joint. Joint spaces are preserved. Soft tissues are within normal limits. IMPRESSION: No acute fracture or dislocation identified.
--- NOTE | 2020-09-16 23:12 | NUR ---
ED Nurse Note: all medications administered, pt tolerated well no ss of distress noted. will continue to monitor. ermd at bedside for pt update.
[2020-09-16 23:13] VITALS: BP 119/81
--- NOTE | 2020-09-16 23:13 | NUR ---
ER DISCHARGE NOTE: Patient is cleared to be discharged home per ERMD, pt is aox4, 99% on room air, with stable vital signs. pt was given dc and prescription instructions, pt was able to verbalize understanding, pt id band removed without complications. pt is able to ambulate with steady gait. pt took all belongings.
[2020-09-16] MEDS ORDERED: Ketorolac 30mg Inj IM ONE (23:15)
== END 2020-09-16 23:13 | disposition home or self-care (01) ==
LOC: EMR 22:00
DX: S49.91XA Unspecified injury of right shoulder and upper arm, initial encounter (principal); S69.91XA Unspecified injury of right wrist, hand and finger(s), initial encounter; J45.909 Unspecified asthma, uncomplicated; W10.9XXA Fall (on) (from) unspecified stairs and steps, initial encounter; Y93.9 Activity, unspecified; Y92.9 Unspecified place or not applicable; Z88.0 Allergy status to penicillin
CPT/HCPCS: 29125; 73030; 73130; 96372; 96374; J2270; Z7502; 99284

== ENCOUNTER 2020-09-20 05:48 | Emergency (ER) | payer MEDICAID ==
[~2020-09-20] VITALS: Ht 185.4 cm; Wt 99.3 kg
--- NOTE | 2020-09-20 06:03 | NUR ---
ED Nurse Note: Pt walked into the ed due to 9/10 pain to both shoulders and neck. pt stated; he fall downdstairs and dislocated his shoulder. He was here for intial injury and dr sent him with pain medications but according to the pt the medications is not controling the pain. pt is A&Ox 4 and ambulatory. vtials are stable.
[2020-09-20 06:10] VITALS: BP 149/95
[2020-09-20] MEDS ORDERED: Ketorolac 60mg Inj IM ONE (06:15)
[2020-09-20] MEDS ORDERED: Ketorolac 30mg Inj ONE (06:15)
[2020-09-20] MEDS ORDERED: NAPROXEN500 M1 ORAL (06:21)
[2020-09-20] MEDS ORDERED: NORCO 5-325 TA1 EAC1 ORAL (06:21)
[2020-09-20] MEDS ORDERED: LIDODERM700 M1 TOPIC (06:21)
--- NOTE | 2020-09-20 06:22 | Emergency Room Report ---
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 Patient is continuing to have right shoulder pain status post reduction of shoulder dislocation a few days ago. He had a mechanical fall several days ago but did not have head trauma, LOC, or prodromal syncope/CP/Abd pain or any other symptoms. He denies numbness or tingling at this time. When he was here a few days ago, he was placed in a right upper extremity shoulder immobilizer and given thumb spica splint and instructed to follow-up with orthopedics which she has not. He states that the [place] relieved his pain, but he ran out Denies numbness, tingling, reinjury, recurrent fall, chest pain, shortness of breath, cough, hemoptysis or any other symptoms. The patient's symptoms were gradual onset, severity was moderate, duration since a few days. Quality: Aching Past medical history: Previous alcoholism, previous pancreatitis, chronic back pain Past surgical history: Knee surgery Smoking: Denies Alcohol use: Previous Drug use: Denies Review of systems: CONST: No fevers or chills, No night sweats PULMONARY: No productive cough, No shortness of breath CARDIAC: No chest pain, No palpitations GI: No vomiting, No diarrhea , No melena_or_BRBPR : No dysuria, No hematuria, No discharge NEURO: No new_focal_weakness_or_numbness, No confusion, No vision changes 14 point Review of Systems is otherwise negative except per HPI Physical Exam: GENERAL: Awake_alert_ nontoxic, no acute distress Spo2 98% on RA -normal EYES: Extraocular muscles are intact. Conjunctivae clear. Lids without swelling ENT: External nose and ear normal_in_appearance. Oropharynx clear. Head_atraumatic, Moist_oral_mucosa NECK: No JVD. No meningismus. No thyromegaly. Supple. Trachea midline No midline cervical, thoracic, lumbar spinal step-offs or deformity. Right cervical paraspinal hypertonicity. Full range of motion of the cervical spine in flexion, extension, sidebending and rotation RESP: Normal respiratory effort. Symmetric rise. No stridor. Clear_to_auscultation_No_rales_No_wheezes. No chest wall crepitus CARDIAC: Regular rate and regular rhytm. No_significant pedal edema. ABDOMEN: Soft. Nondistended. Nontender_No_rebound_or_guarding. MSK: Normal muscle tone, without rigidity. Extremities without asymmetric deformity or swelling. Positive right thumb spica. Positive scaphoid tenderness palpation. Upper extremity exam: RIGHT Elbow: No swelling / effusion appreciated Wrist: No swelling / effusion appreciated Lateral epicondyle: no tenderness / swelling / ecchymoses Medial epicondyle: no tenderness / swelling / ecchymoses Radial pulse: 2+ Capillary refill: <3 seconds in all fingers All fingers: full range of motion without any tenderness / swelling / deformity / evidence of infection Scaphoid: ++ tenderness / swelling / ecchymoses, ++ pain with axial loading of the thumb Radian / Median / Ulnar nerves: all intact (finger opposition, finger adduction / abduction, thumb dorsiflexion) Sensation intact to light touch: in all fingers Strength 5/5 with: wrist dorsi / volar flexion, hand second hand, elbow flexion / extension Positive right shoulder immobilizer. Tenderness to palpation at the right deltoid and right bicep. SKIN: Warm and dry. No visible cyanosis or pallor NEUROLOGIC: Alert, oriented x3 immobilized in. Motor_and_sensation_grossly_intact. No truncal ataxia. Gait_normal Psych: Normal mood and affect, normal judgment and insight - COORDINATION OF CARE Case was discussed with: Patient Any labs and imaging that were ordered were interpreted as part of the medical decision making: Medical Decision Making/Plan: Differential diagnosis includes musculoskeletal pain, fracture, dislocation, compartment syndrome, arterial occlusion, nerve damage, among others. Patient is neurologically intact, afebrile. Trauma survey is unremarkable. I reviewed previous imaging including hand and right shoulder x-ray which were negative for acute injury or dislocation. No indication for repeat imaging at this time. Patient is here to request medication refill for [place]. Distally the patient has capillary refill <2 seconds and strong pulses. There is no pallor or pain out of proportion to exam. There is no significant swelling, deformity No evidence of arterial occlusion or injury. Radial pulse 2/4 BUE. The associated joints have full range of motion without any significant pain or restriction in mobility. No evidence at this time of major ligamentous disruption. He does have snuffbox tenderness to palpation of the right wrist. Thumb spica is in place. I have instructed him to follow-up for repeat x-rays in 7 to 10 days to evaluate for scaphoid injury. Advised nonweightbearing to the right wrist until cleared by orthopedics. He was educated that if he does not follow- up in 7 to 10 days and does have scaphoid injury or removes his splint, that he may have lifelong arthritis. Patient verbalizes understanding. We will refill his [place] but will instruct him to not drive or combine with alcohol as it can be potentially sedating. Patient verbalizes his understanding. However, the patient was informed that occult fractures are not always apparent on their first visit and understand to follow up with their regular doctor for a reevaluation within the next 2-3 days, to ensure their symptoms completely r esolve. 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 UTILITY: No Nursing Documentation-PMH Past Medical History: No History, Except For Hx Cardiac Problems: No Hx Hypertension: No Hx Pacemaker: No Hx Asthma: Yes Hx COPD: No Hx Diabetes: No Hx Cancer: No Hx Gastrointestinal Problems: No Hx Dialysis: No Hx Neurological Problems: Yes Hx Cerebrovascular Accident: No Hx Seizures: No Hx Headaches: Yes Physical Exam Vital Signs Date Time Temp Pulse Resp B/P (MAP) Pulse Ox O2 Delivery O2 Flow Rate FiO2 09/20/20 05:49 98.4 90 16 149/95 (113) 98 Room Air Sp02 EP Interpretation: reviewed, normal Medical Decision Making Diagnostic Impression: Primary Impression: Shoulder pain Additional Impressions: Shoulder injury Contusion of bone Muscle ache Right wrist injury Reevaluation Time: 06:19 Last Vital Signs Date Time Temp Pulse Resp B/P (MAP) Pulse Ox O2 Delivery O2 Flow Rate FiO2 09/20/20 05:49 98.4 90 16 149/95 (113) 98 Room Air Status: improved Disposition: HOME, SELF-CARE Admit Decision Time: 06:19 Condition: Stable Scripts Lidocaine Patch* (Lidoderm Patch*) 1 Each Adh..patch 1 PATCH TOPIC DAILY, #7 PATCH 0 Refills Patch(es) may remain in place for up to 12 hours in any 24-hour period. Prov: Maddison Marcos D.O. 09/20/20 Naproxen* (NAPROXEN*) 500 Mg Tablet.dr 500 MG ORAL TWICE A DAY for 5 Days, #10 TAB Prov: Maddison Marcos D.O. 09/20/20 Hydrocodone Bit/Acetaminophen 5-325* (NORCO 5-325 TABLET*) 1 Each Tablet 1 TAB ORAL Q6H PRN for FOR PAIN, #10 TAB 0 Refills Prov: Maddison Marcos D.O. 09/20/20 Referrals: NOT CHOSEN [facility]/,REFERRING (PCP) Patient Instructions: Scaphoid Fracture, Wrist, Shoulder Pain, [id number] Additional Instructions: Instructions for patient/public relations officer: Follow up with your physician in 1-2 days for referral to orthopedics. You need to follow-up in 7 to 10 days for repeat x-rays of your wrist and hand. Keep your splint on. Due to your tenderness at the right wrist, you may have a wrist fracture that requires orthopedic consultation. Failure to follow-up with doctor or floral department specialist may result in lifelong arthritis and disability. Do not combine [place] with alcohol as it is potentially sedating. Do not take [place] and drive Follow-up with your doctor sooner if your condition requires a more timely clinical reevaluation. Return to the emergency department immediately if you feel that your condition is worsening or if you have any new or concerning symptoms. Review your discharge instructions and take any prescriptions given as instructed. [facility] PROVIDES FREE OR LOW-COST HEALTH SERVICES TO PEOPLE WHO CAN SHOW P ROOF THAT THEY LIVE IN [facility]. TO FIND MORE CLINICS PARTNERED WITH THE [facility] TO PROVIDE SERVICE, PLEASE CALL . Maddison Marcos D.O. Sep 20, 2020 06:22
[2020-09-20 06:32] VITALS: BP 149/95
== END 2020-09-20 06:32 | disposition home or self-care (01) ==
LOC: EMR 06:11
DX: S40.011D Contusion of right shoulder, subsequent encounter (principal); S69.91XD Unspecified injury of right wrist, hand and finger(s), subsequent encounter; W19.XXXD Unspecified fall, subsequent encounter; M79.10 Myalgia, unspecified site; Z88.0 Allergy status to penicillin; J45.909 Unspecified asthma, uncomplicated
CPT/HCPCS: 96372; J1885; Z7502; 99283

== ENCOUNTER 2020-09-29 18:59 | Emergency (ER) | payer MEDICAID ==
[~2020-09-29] VITALS: Ht 185.4 cm; Wt 103.0 kg
[~2020-09-29 18:59] MED LIST changes: +LIDODERM700 M1 TOPIC; +NAPROXEN500 M1 ORAL; +NORCO 5-325 TA1 EAC1 ORAL
[2020-09-29 19:05] VITALS: BP 130/74
--- NOTE | 2020-09-29 19:05 | NUR ---
ED Nurse Note: pt ambulated into ed from home co rash on legs bilaterally spreading to lower waist with redness and itchiness. 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 Pt states rash started 1 week ago after recent ED visit at [facility] due to pt being given new medication at that time. pt states pain /. Awaiting ERMD at bedside. Will continue to monitor. pt placed in room.
--- NOTE | 2020-09-29 19:50 | NUR ---
ED Nurse Note: ERMD at bedside
--- NOTE | 2020-09-29 20:05 | NUR ---
ED Nurse Note: pt highly agitated, yelling, stating that the doctor was rude and offensive. attempted to redirect pt to room to discuss issue in private, unsuccessful. Charge nurse aware.
--- NOTE | 2020-09-29 20:20 | NUR ---
ED Nurse Note: pt sitting in room calmly, no longer yelling or agitated. will continue to monitor.
--- NOTE | 2020-09-29 20:29 | Emergency Room Report ---
History of Present Illness General Chief Complaint: Skin Rash/Abscess Source: Patient Present Illness HPI When I went in to see this patient he seemed very frustrated and was verbally aggressive. Patient seemed agitated and on edge. The patient states that a couple days after he was seen here at [facility] after getting a shoulder reduction for shoulder dislocation he noticed a rash and some itching on both of his legs. He states that he believes that on September 16 when he received injections for the shoulder dislocation but this has caused an allergic reaction in his body. He states that his skin is itching. The rash is on both of his lower extremities. He has no rash on his arms or trunk. He denies being in the sun or any new contacts. He has been taking Ham[place], Motrin. He denies fever or chills. He denies nausea or vomiting. 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 Testing performed HEALTHCARE INTERPRETER: No Patient History Past Medical History: see triage record, asthma Social History: Denies: smoking, alcohol use, drug use Reviewed Nursing Documentation: PMH: Agreed; PSxH: Agreed Nursing Documentation-PMH Past Medical History: No History, Except For Hx Cardiac Problems: No Hx Hypertension: No Hx Pacemaker: No Hx Asthma: Yes Hx COPD: No Hx Diabetes: No Hx Cancer: No Hx Gastrointestinal Problems: No Hx Dialysis: No Hx Neurological Problems: Yes Hx Cerebrovascular Accident: No Hx Seizures: No Hx Headaches: Yes Review of Systems All Other Systems: negative except mentioned in HPI Physical Exam Vital Signs Date Time Temp Pulse Resp B/P (MAP) Pulse Ox O2 Delivery O2 Flow Rate FiO2 09/29/20 19:00 98.1 95 20 130/74 (92) 99 Room Air Sp02 EP Interpretation: reviewed, normal General Appearance: no apparent distress, alert, GCS 15, non-toxic Head: normocephalic, atraumatic Eyes: bilateral eye normal inspection ENT: hearing grossly normal, no angioedema, normal voice Neck: normal inspection Respiratory: no respiratory distress, no retraction, no accessory muscle use, speaking full sentences Rectal: deferred Musculoskeletal: normal inspection, gait/station normal, non-tender Neurologic: alert, motor strength/tone normal, oriented x3, sensory intact, responsive, speech normal Psychiatric: judgement/insight normal, memory normal, mood/affect normal, no suicidal/homicidal ideation Skin: other - Dry skin with some erythema and excoriations diffusely on the bilateral lower extremities. No hives. No demarcated lesions. No warmth or swelling. Medical Decision Making Diagnostic Impression: Primary Impression: Rash and other nonspecific skin eruption ER Course I tried to explain to the patient that this dry skin/rash was not likely related to a medication from a week and a half ago. Further, I tried to explain that a drug reaction would not be localized like this. The patient skin is consistent with dry skin. Possibly there could be a mild contact dermatitis of some sort. Another consideration could be scabies. When I tried to discuss this and explained this to the patient he was very agitated and rude, raising his voice and stating that I needed to inject him with something to fix his skin and that he needed antibiotics or some other medication. I told him that I would treat him with Benadryl and he became very angry stating that he can get that [id number]. I also educated him that his skin was very dry and he needs to use emollients on his skin. He continued to escalate and became angry and I felt threatened that this patient would become violent. He kept requesting that I close the door to the exam room. I felt uncomfortable with the situation. The patient's rash is not urgent and I did offer Benadryl up to the patient. He continued to escalate and to be agitated. The patient was using obscenities and was very angry and he began yelling at the staff and myself and stating that he was going to call his civil litigation attorney and tyler me. I do not feel that this patient needed my emergency medical services. I had examined this patient and felt that he only needed Benadryl and an emollient cream. However he continued to be unhappy with my care. I am unsure why this patient is so angry and agitated. The patient was given IM Benadryl and oral prednisone. I will give the patient prednisone and Benadryl prescription. Patient was also educated to use emollient on his skin. The patient left stating that he would tyler me. Last Vital Signs Date Time Temp Pulse Resp B/P (MAP) Pulse Ox O2 Delivery O2 Flow Rate FiO2 12/30/20 19:00 98.1 95 20 130/74 (92) 99 Room Air Status: improved Disposition: HOME, SELF-CARE Condition: Improved Scripts Prednisone* (PREDNISONE*) 20 Mg Tablet 20 MG ORAL DAILY, #7 TAB Prov: Bee Sahu DO 09/29/20 Mineral Oil/Hydrophil Petrolat (AQUAPHOR HEALING OINTMENT) 50 Gm Oint...g. 396 GM TP BID, #396 GM Prov: Bee Sahu DO 09/29/20 Diphenhydramine Hcl* (BENADRYL*) 25 Mg Capsule 25 MG ORAL Q6H PRN for Itching, #20 CAP Prov: Bee Sahu DO 09/29/20 Referrals: [facility]ERR[facility] (PCP) Patient Instructions: Bee Zabala DO Sep 29, 2020 20:28
[2020-09-29] MEDS ORDERED: DiphenhydrAMINE 50mg/ml Inj IM ONE (20:30)
--- NOTE | 2020-09-29 20:45 | NUR ---
ED Nurse Note: all medications administered, pt tolerated well no ss of distress noted. will continue to monitor.
[2020-09-29] MEDS ORDERED: AQUAPHOR HEALIN50 GM TP (20:55)
[2020-09-29] MEDS ORDERED: BENADRYL25 MG ORAL (20:55)
[2020-09-29] MEDS ORDERED: PREDNISONE20 MG ORAL (20:55)
[2020-09-29 21:09] VITALS: BP 129/76
--- NOTE | 2020-09-29 21:09 | NUR ---
ER DISCHARGE NOTE: Patient is cleared to be discharged home per ERMD, pt is aox4,99% on room air, with stable vital signs. pt was given dc and prescription instructions, pt was able to verbalize understanding, pt id band removed without complications. pt is able to ambulate with steady gait. pt took all belongings.
== END 2020-09-29 21:09 | disposition home or self-care (01) ==
LOC: EMR 19:46
DX: R21 Rash and other nonspecific skin eruption (principal); J45.909 Unspecified asthma, uncomplicated; Z79.899 Other long term (current) drug therapy; Z88.0 Allergy status to penicillin
CPT/HCPCS: 96372; J1200; J7512; Z7502; 99283

== ENCOUNTER 2020-10-10 21:40 | Emergency (ER) | payer MEDICAID ==
[~2020-10-10] VITALS: Ht 185.4 cm; Wt 103.4 kg
[~2020-10-10 21:40] MED LIST changes: +AQUAPHOR HEALIN50 GM TP; +BENADRYL25 MG ORAL; +PREDNISONE20 MG ORAL
[2020-10-10 22:00] VITALS: BP 121/82
--- NOTE | 2020-10-10 22:00 | NUR ---
ED Nurse Note: pt walked into ED from home c/o of bilateral leg itchiness and rash for the past 3 weeks after receiving IM toradol administration. Pt was seen for same complaint last week and was prescribed benadryl but has had no relief from itchiness but rash has improved.
[2020-10-10] MEDS ORDERED: CETIRIZINE HCL10 MG PO (22:06)
[2020-10-10] MEDS ORDERED: BENADRYL ITCH28.3 G1 TP (22:06)
--- NOTE | 2020-10-10 22:10 | Emergency Room Report ---
History of Present Illness General Chief Complaint: Skin Rash/Abscess Source: Patient Present Illness HPI Disclaimer: Please note that this report is being documented using DRAGON technology. This can lead to erroneous entry secondary to incorrect interpretation by the dictating instrument. HPI: 50-year-old male presents for evaluation of bilateral leg itching. Seen in these emergency by multiple times for similar complaints. He states he has had itching after receiving a Toradol shot for shoulder pain. He has been given prednisone and Benadryl. He states the Benadryl works but when it wears off the itching resumes. He noted a rash over the past few days but this is now resolved. The itching persist. Denies current skin breakdown. Denies bug bites, ulcers, bleeding or weeping. Denied prior history of allergies. Has never had allergy testing. Denies throat swelling, diffuse urticaria, difficulty breathing or wheezing. 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 - 09/24/20 COVID-19 Screening: Negative COVID-19 COVID-19 Testing Source: [place] Nursing Documentation-[facility] Past Medical History: No History, Except For Hx Cardiac Problems: No Hx Hypertension: No Hx Pacemaker: No Hx Asthma: Yes Hx COPD: No Hx Diabetes: No Hx Cancer: No Hx Gastrointestinal Problems: No Hx Dialysis: No Hx Neurological Problems: Yes Hx Cerebrovascular Accident: No Hx Seizures: No Hx Headaches: Yes Review of Systems All Other Systems: negative except mentioned in HPI Physical Exam Vital Signs Date Time Temp Pulse Resp B/P (MAP) Pulse Ox O2 Delivery O2 Flow Rate FiO2 10/10/20 21:50 99.0 90 18 123/82 (96) 100 Room Air General: Awake and alert, no acute distress HEENT: NC/AT. EOMI. Resp: Normal work of breathing Skin: Intact. No abrasions, laceration or rash over the exposed skin MSK: Normal tone and bulk. Moving all extremities. No obvious deformity. Calves are symmetrical. Nontender. Neuro: Awake and alert. Mentating appropriately Medical Decision Making Diagnostic Impression: Primary Impression: Itching ER Course 50-year-old male presents for evaluation of leg itching. Symptoms present for over a month. I find no obvious rash or skin breakdown signs of infection or cellulitis. Patient is taking Benadryl with good effect but states effects return when it wears off. Start him on cetirizine and add topical Benadryl cream. Also recommend he apply cold compress and take cold showers as opposed to the hot showers he is taking now which will make his itching worse. Also recommended that he ask his PMD for referral to windows support engineer for allergy testing. Stable for outpatient follow-up. Last Vital Signs Date Time Temp Pulse Resp B/P (MAP) Pulse Ox O2 Delivery O2 Flow Rate FiO2 10/10/20 22:00 98.7 79 18 121/82 100 Room Air Disposition: HOME, SELF-CARE Condition: Stable Scripts Cetirizine Hcl (ZyrTEC*) 10 Mg Tablet 10 MG PO DAILY for Allergies for 10 Days, #10 TAB Prov: Juan R Rosen MD 10/10/20 Diphenhydramine Hcl/Zinc Acet (BENADRYL ITCH STOPPING CRM) 28.3 Gm Cream..g. 28.3 GM TP TID for 5 Days, #28.3 GM Prov: Juan R Rosen MD 10/10/20 Patient Instructions: Rash Additional Instructions: Follow-up with allergy testing through your primary care doctor. Use the medication as prescribed. Please follow-up with your primary care doctor in the next 1 to 3 days to discuss this emergency department visit and for reevaluation. If you have any new or worsening symptoms please return to the emergency department for reevaluation. Please note that this report is being documented using [employer] technology. This can lead to erroneous entry secondary to incorrect interpretation by the dictating instrument. Juan R Rosen MD Oct 10, 2020 22:10
[2020-10-10 22:18] VITALS: BP 118/79
--- NOTE | 2020-10-10 22:18 | NUR ---
ER DISCHARGE NOTE: Patient is cleared to be discharged per ERMD, pt is aox4, on room air, with stable vital signs. pt was given dc and prescription instructions, pt was able to verbalize understanding, pt id band removed. pt is able to ambulate with steady gait. pt took all belongings.
== END 2020-10-10 22:18 | disposition home or self-care (01) ==
LOC: EMR 22:02
DX: L29.9 Pruritus, unspecified (principal); J45.909 Unspecified asthma, uncomplicated; Z88.0 Allergy status to penicillin; Z88.8 Allergy status to other drugs, medicaments and biological substances
CPT/HCPCS: 99282

== ENCOUNTER 2020-10-13 02:29 | Emergency (ER) | payer MEDICAID ==
[~2020-10-13] VITALS: Ht 185.4 cm; Wt 103.4 kg
[~2020-10-13 02:29] MED LIST changes: +BENADRYL ITCH28.3 G1 TP; +CETIRIZINE HCL10 MG PO
--- NOTE | 2020-10-13 02:40 | NUR ---
ED Nurse Note: Patient walked in from home due to rashes on bilateral arm and bilateral legs x 2 weeks. Pt reports using cream that has not been working. Respirations even and unlabored on room air. Vitals stable as documented. A+Ox4, speaking in complete sentences.
[2020-10-13 02:41] VITALS: BP 136/71
[2020-10-13] MEDS ORDERED: DiphenhydrAMINE 50mg/ml Inj IVP ONE (03:00)
[2020-10-13] MEDS ORDERED: Solu-MEDROL 125mg Inj IVP ONE (03:00)
--- NOTE | 2020-10-13 03:05 | Emergency Room Report ---
History of Present Illness General Chief Complaint: Skin Rash/Abscess Source: Patient, Medical Record Present Illness HPI Patient presents with ongoing skin itching and swelling of his ankles that began after shoulder injury on September 16 with use of Toradol. He denies pain at this time. During initial injury the patient slipped on wet tile. He states a family member was able to reduce the shoulder. X-rays of the hand and shoulder did not reveal fractures at the time. The patient returned September 20 still complaining about pain. At that time he did not complain of any rash. The patient initially presented with a rash on September 29. He says the rash had appeared after an injection of Toradol when he presented after the shoulder had been reduced by his uncle. During initial evaluation on September 29 the rash only appeared on his legs. He was given a prescription for prednisone and Benadryl. There was some communication issues during that visit. He reports that since that time the rash has spread more. He has been itching a lot. He returned on October 10. His main complaint was itching. At that time he said the rash had resolved to the emergency physician. His complaint the itching return after Benadryl wore off. Claritin was prescribed. Patient denies fevers or chills. There is no dyspnea or swelling in his throat. There is no nausea, vomiting or diarrhea. He denies any wheezing although he has a history of asthma and has used an inhaler in the past. He denies dyspnea on exertion or dyspnea. There are no fevers or chills. Aside from the rash there is no erythema. No calf tenderness or hemoptysis. No pleuritic chest pain. No nausea, vomiting or diarrhea. No dysuria. No hematuria. Joint pain has improved. The patient states he had labs performed a few months ago prior to the injury and they were all "normal". He denies prior renal disease. 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: Yes COVID-19 Screening: Negative COVID-19 COVID-19 Testing Source: SUPERINTENDENT CONTAINER TERMINAL Patient History Past Medical History: see triage record, old chart reviewed Social History: Reports: smoking, drug use - THC; Denies: alcohol use Social History Narrative retired Reviewed Nursing Documentation: PMH: Agreed; PSxH: Agreed Nursing Documentation-PMH Hx Cardiac Problems: No Hx Hypertension: No Hx Pacemaker: No Hx Asthma: Yes Hx COPD: No Hx Diabetes: No Hx Cancer: No Hx Gastrointestinal Problems: No Hx Dialysis: No Hx Neurological Problems: Yes Hx Cerebrovascular Accident: No Hx Seizures: No Hx Headaches: Yes Review of Systems Constitutional: Denies: fever ENT: Denies: throat pain, throat swelling Respiratory: Denies: cough, shortness of breath Cardiovascular: Denies: chest pain All Other Systems: negative except mentioned in HPI Physical Exam Vital Signs Date Time Temp Pulse Resp B/P (MAP) Pulse Ox O2 Delivery O2 Flow Rate FiO2 10/13/20 02:33 98.4 96 18 131/76 (94) 96 Room Air Sp02 EP Interpretation: reviewed, normal General Appearance: well appearing, no apparent distress, GCS 15 Head: normocephalic Eyes: bilateral eye normal inspection, bilateral eye PERRL, bilateral eye EOMI ENT: no angioedema, moist mucus membranes Neck: supple Respiratory: chest non-tender, lungs clear, normal breath sounds, no wheezing Cardiovascular #1: regular rate, rhythm, edema - Bilateral lower extremities somewhat taut but 1+ Cardiovascular #2: 2+ radial (R) Gastrointestinal: normal inspection, normal bowel sounds, non tender, non-d istended Musculoskeletal: back normal, normal range of motion, no calf tenderness, gait/station normal Neurologic: alert, oriented x3, grossly normal Psychiatric: mood/affect normal Skin: warm/dry, other - Excoriations forearms and lower extremities. There are some mild nodular lesions on the forearms. These are rare and diffuse. There is no underlying erythema. There is a slightly increased pigmented area left anterior lower tibia and ankle area. Medical Decision Making Diagnostic Impression: Primary Impression: Allergic reaction Qualified Codes: T78.40XD - Allergy, unspecified, subsequent encounter Additional Impressions: Edema Qualified Codes: R60.0 - Localized edema Renal insufficiency ER Course Patient presents with a pruritic rash that he associates with administration of Toradol after a shoulder injury on September 16. Differential includes allergic reaction, contact dermatitis, scabies, cellulitis, renal failure, cor pulmonale, congestive heart failure amongst others. Due to the recurrent nature and edema labs are indicated. In addition in preparation for giving IM adrenaline and EKG chest x-ray cardiac monitoring and are indicated. There is no evidence of anaphylaxis at this time. Most likely this is a delayed allergic reaction. Benadryl and Solu-Medrol given IV. At this point there is no evidence of cellulitis. The rash does not appear scabietic to me. No evidence of anaphylaxis. EKG normal. Chest x-ray unremarkable. Labs remarkable for eosinophilia and a creatinine of 1.4 with mildly elevated CPK. IM epinephrine 0.3 mg was given IM. The patient was having some relief after this administration. After observation the patient was still complaining about itching. Discussion of indolent nature of his skin rash and the fact that treatments I was begin ifeanyi would be expected to kick in within hours. He still denied respiratory component. Ice packs were applied to lower legs with some relief. Patient was sleeping. Discussed results and treatment plan with the patient. Patient understands the need for follow-up for repeat renal function testing. No medical emergency at this time. Patient stable for outpatient observation and treatment. Laboratory Tests Test 10/13/20 03:10 10/13/20 04:08 White Blood Count 7.5 K/UL (4.8-10.8) Red Blood Count 5.03 M/UL (4.70-6.10) Hemoglobin 14.1 G/DL (14.2-18.0) L Hematocrit 45.0 % (42.0-52.0) Mean Corpuscular Volume 90 FL (80-99) Mean Corpuscular Hemoglobin 28.0 PG (27.0-31.0) Mean Corpuscular Hemoglobin Concent 31.3 G/DL (32.0-36.0) L Red Cell Distribution Width 14.0 % (11.6-14.8) Platelet Count 246 K/UL (150-450) Mean Platelet Volume 6.9 FL (6.5-10.1) Neutrophils (%) (Auto) 69.0 % (45.0-75.0) Lymphocytes (%) (Auto) 16.0 % (20.0-45.0) L Monocytes (%) (Auto) 7.7 % (1.0-10.0) Eosinophils (%) (Auto) 6.3 % (0.0-3.0) H Basophils (%) (Auto) 1.1 % (0.0-2.0) Prothrombin Time 10.8 SEC (9.30-11.50) Prothrombin Time INR 1.0 (0.9-1.1) Activated Partial Thromboplast Time 26 SEC (23-33) Urine Color Pale yellow Urine Appearance Clear Urine pH 5 (4.5-8.0) Urine Specific [place] 1.025 (1.005-1.035) Urine Protein Negative (NEGATIVE) Urine Glucose (UA) Negative (NEGATIVE) Urine Ketones Negative (NEGATIVE) Urine Blood Negative (NEGATIVE) Urine Nitrite Negative (NEGATIVE) Urine Bilirubin Negative (NEGATIVE) Urine Urobilinogen Normal MG/DL (0.0-1.0) Urine Leukocyte Esterase Negative (NEGATIVE) Sodium Level 137 MMOL/L (136-145) Potassium Level 4.0 MMOL/L (3.5-5.1) Chloride Level 104 MMOL/L (98-107) Carbon Dioxide Level 27 MMOL/L (21-32) Anion Gap 6 mmol/L (5-15) Blood Urea Nitrogen 9 mg/dL (7-18) Creatinine 1.4 MG/DL (0.55-1.30) H Estimated Glomerular Filtration Rate > 60 mL/min (>60) Glucose Level 113 MG/DL (74-106) H Calcium Level 9.0 MG/DL (8.5-10.1) Total Bilirubin 0.2 MG/DL (0.2-1.0) Aspartate Amino Transferase (AST) 28 U/L (15-37) Alanine Aminotransferase (ALT) 35 U/L (12-78) Alkaline Phosphatase 89 U/L (46-116) Total Creatine Kinase 342 U/L (26-308) H Troponin I 0.013 ng/mL (0.000-0.056) Pro-B-Type Natriuretic Peptide 8 pg/mL (0-125) Total Protein 6.4 G/DL (6.4-8.2) Albumin 3.2 G/DL (3.4-5.0) L Globulin 3.2 g/dL Albumin/Globulin Ratio 1.0 (1.0-2.7) Urine Opiates Screen Negative (NEGATIVE) Urine Barbiturates Screen Negative (NEGATIVE) Phencyclidine (PCP) Screen Negative (NEGATIVE) Urine Amphetamines Screen Negative (NEGATIVE) Urine Benzodiazepines Screen Negative (NEGATIVE) Urine Cocaine Screen Negative (NEGATIVE) Urine Marijuana (THC) Screen Positive (NEGATIVE) H EKG Diagnostic Results Rate: normal Rhythm: NSR ST Segments: no acute changes Rhythm Strip Diag. Results EP Interpretation: yes Rhythm: NSR, no PVC's, no ectopy Chest X-Ray Diagnostic Results Chest X-Ray Diagnostic Results : Chest X-Ray Ordered: Yes # of Views/Limited/Complete: 1 View Indication: Other EP Interpretation: Yes Interpretation: no consolidation, no effusion, no pneumothorax Impression: No acute disease Electronically Signed by: Electronically signed by Samuel Goins MD Last Vital Signs Date Time Temp Pulse Resp B/P (MAP) Pulse Ox O2 Delivery O2 Flow Rate FiO2 10/13/20 04:54 85 18 136/77 98 Room Air 10/13/20 02:33 98.4 Status: improved Disposition: HOME, SELF-CARE Condition: Improved Scripts Triamcinolone Acet (Triamcinolone Acetonide) 15 Gm Cream..g. 1 APPLIC BC TID PRN for rash/itching, #30 GM 1 Refill Prov: Samuel Goins MD 10/13/20 Acetaminophen (Tylenol) 325 Mg Tablet 650 MG ORAL Q6H PRN for Prn Pain/Headache/Temp > 101, #20 TAB 0 Refills Prov: Samuel Goins MD 10/13/20 Hydroxyzine Pamoate (VISTARIL) 25 Mg Capsule 25 MG PO Q6HR PRN for Itching, #30 CAP Prov: Samuel Goins MD 10/13/20 Prednisone* (PREDNISONE*) 20 Mg Tablet 40 MG ORAL DAILY, #10 TAB Prov: Samuel Goins MD 10/13/20 [facility]errals: [facility] (PCP) Samuel Goins MD Oct 13, 2020 03:05
[2020-10-13 03:19] LABS: BASOPHILS % (AUTO) 1.1 % (0.0-2.0); EOSINOPHILS % (AUTO) 6.3 % (0.0-3.0); HEMOGLOBIN 14.1 G/DL (14.2-18.0); MEAN CORPUSCULAR VOLUME 90 FL (80-99); MONOCYTES % (AUTO) 7.7 % (1.0-10.0); PLATELET COUNT 246 K/UL (150-450); RED BLOOD COUNT 5.03 M/UL (4.70-6.10); WHITE BLOOD COUNT 7.5 K/UL (4.8-10.8)
--- NOTE | 2020-10-13 03:22 | NUR ---
ED Nurse Note: pt care assummed pt eating sandwich. pcxr done. pt aware to obtain urine sample, urinal given
[2020-10-13 03:30] LABS: ANION GAP 6 mmol/L (5-15); BLOOD UREA NITROGEN 9 mg/dL (7-18); CARBON DIOXIDE 27 MMOL/L (21-32); CHLORIDE 104 MMOL/L (98-107); CREATININE 1.4 MG/DL (0.55-1.30); SODIUM 137 MMOL/L (136-145)
[2020-10-13 03:41] LABS: ALANINE AMINOTRANSFERASE 35 U/L (12-78); ALBUMIN 3.2 G/DL (3.4-5.0); ALKALINE PHOSPHATASE 89 U/L (46-116); ASPARTATE AMINO TRANSFERASE 28 U/L (15-37); BILIRUBIN,TOTAL 0.2 MG/DL (0.2-1.0); CREATINE KINASE 342 U/L (26-308)
[2020-10-13] MEDS ORDERED: EPINEPHrine 1mg/1ml Amp IM ONE (03:45)
--- NOTE | 2020-10-13 03:54 | NUR ---
ED Nurse Note: pt relates he is having itching and still uncomfortable. meds given as ordered
[2020-10-13 03:55] LABS: APPEARANCE,URINE CLEAR; BILIRUBIN, URINE NEGATIVE (NEGATIVE); COLOR,URINE PALE YELLOW; GLUCOSE, URINE (UA) NEGATIVE (NEGATIVE); KETONES,URINE NEGATIVE (NEGATIVE); LEUKOCYTE ESTERASE ,URINE NEGATIVE (NEGATIVE); NITRITE,URINE NEGATIVE (NEGATIVE); PH,URINE 5 (4.5-8.0); PROTEIN,URINE NEGATIVE (NEGATIVE); UROBILINOGEN,URINE NORMAL MG/DL (0.0-1.0)
[2020-10-13] MEDS ORDERED: PREDNISONE20 MG ORAL (04:36)
[2020-10-13] MEDS ORDERED: KENALOG 0.5% CR15 GM BC (04:36)
[2020-10-13] MEDS ORDERED: TYLENOL325 MG ORAL (04:36)
[2020-10-13] MEDS ORDERED: VISTARIL25 M1 PO (04:36)
[2020-10-13 04:54] VITALS: BP 136/77
--- NOTE | 2020-10-13 04:55 | NUR ---
ED Nurse Note: Pt cleared by health care Provider for discharge. DC instructions/prescription was given and explained to pt and verbalized understanding of teachings. All medical devices such as ID band removed. Pt is AAO x4, ambulatory and left with all personal belongings.
--- NOTE | 2020-10-13 14:19 | Diagnostic Imaging Report ---
Indication: Shortness of breath Technique: One view of the chest Comparison: 07/19/2020 Findings: Lungs and pleural spaces are clear. Heart size is normal. No significant change Impression: No acute process
== END 2020-10-13 04:56 | disposition home or self-care (01) ==
LOC: EMR 02:57
DX: R60.9 Edema, unspecified (principal); T39.8X5A Adverse effect of other nonopioid analgesics and antipyretics, not elsewhere classified, initial encounter; N28.9 Disorder of kidney and ureter, unspecified; J45.909 Unspecified asthma, uncomplicated; F12.90 Cannabis use, unspecified, uncomplicated; Y92.9 Unspecified place or not applicable; Z88.0 Allergy status to penicillin; Z88.8 Allergy status to other drugs, medicaments and biological substances
CPT/HCPCS: 36415; 71045; 80053; 80307; 81003; 82550; 83880; 84484; 85025; 85610; 85730; 93005; 96372; 96374; 96375; J0171; J1200; J2930; Z7502; 99284

== ENCOUNTER 2020-10-24 03:22 | Emergency (ER) | payer MEDICAID ==
[~2020-10-24] VITALS: Ht 185.4 cm; Wt 103.0 kg
[~2020-10-24 03:22] MED LIST changes: +KENALOG 0.5% CR15 GM BC; +TYLENOL325 MG ORAL; +VISTARIL25 M1 PO
--- NOTE | 2020-10-24 04:00 | NUR ---
ED Nurse Note: Recieved pt walk in from home with c/o needing med refill for meds that make his leg swelling go down, no noted swelling to bilat extremities, pt is ambulatory, denies any other complaints or discomforts, denies homelessness, no cp, no sob or labored breathing, nad noted.
[2020-10-24] MEDS ORDERED: LORATADINE10 M2 PO (04:04)
[2020-10-24] MEDS ORDERED: PREDNISONE20 MG ORAL (04:04)
[2020-10-24] MEDS ORDERED: TRIAMCINOLONE A15 G2 TP (04:04)
--- NOTE | 2020-10-24 04:09 | Emergency Room Report ---
History of Present Illness General Chief Complaint: Medication Refill Source: Patient Present Illness HPI 50-year-old male here for medication refill. Patient has been seen here many times in the past for rash of his bilateral lower extremities. Patient claims that this all began after he had received several Toradol injections after he had dislocated his shoulder. He was seen here last week and he had a full work- up that was unremarkable aside from a mildly elevated creatinine of 1.4, but normal GFR. Patient said that he had been using "some pink pill and a cream" that he said was helping but he ran out and would like a refill. In no distress at this time. No fevers, chills, chest pain, palpitations, shortness of breath, cough, tongue or lip swelling, voice change, back pain, abdominal pain, nausea, vomiting, diarrhea, dysuria. 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 Nursing Documentation-PMH Hx Cardiac Problems: No Hx Hypertension: No Hx Pacemaker: No Hx Asthma: Yes Hx COPD: No Hx Diabetes: No Hx Cancer: No Hx Gastrointestinal Problems: No Hx Dialysis: No Hx Neurological Problems: Yes Hx Cerebrovascular Accident: No Hx Seizures: No Hx Headaches: Yes Review of Systems All Other Systems: negative except mentioned in HPI Physical Exam Vital Signs Date Time Temp Pulse Resp B/P (MAP) Pulse Ox O2 Delivery O2 Flow Rate FiO2 10/24/20 03:47 98.2 79 16 125/85 (98) 97 Room Air Sp02 EP Interpretation: reviewed, normal General Appearance: no apparent distress, alert, non-toxic Head: normocephalic, atraumatic Eyes: bilateral eye normal inspection, bilateral eye PERRL ENT: hearing grossly normal, normal pharynx, no angioedema, normal voice Neck: full range of motion, supple/symm/no masses Respiratory: chest non-tender, lungs clear, normal breath sounds, speaking full sentences Cardiovascular #1: regular rate, rhythm, other - 1+ bilateral pitting edema of the lower extremities distal to the knees. Cardiovascular #2: 2+ carotid (R), 2+ carotid (L), 2+ radial (R), 2+ radial (L), 2+ dorsalis pedis (R), 2+ dorsalis pedis (L) Gastrointestinal: normal bowel sounds, non tender, soft, non-distended, no guarding, no rebound Rectal: deferred Genitourinary: normal inspection, no CVA tenderness Musculoskeletal: back normal, normal range of motion, gait/station normal, non- tender Neurologic: alert, motor strength/tone normal, oriented x3, sensory intact, responsive, speech normal Psychiatric: judgement/insight normal, memory normal, mood/affect normal, no suicidal/homicidal ideation Skin: other - Moderately erythematous circumferential skin rash distal lower extremities Lymphatic: no adenopathy Medical Decision Making Diagnostic Impression: Primary Impression: Allergic reaction Additional Impression: Encounter for medication refill ER Course 50-year-old male requesting refill of medications. Patient requesting refill of prednisone and triamcinolone cream that he had received last week when he came to the emergency department for allergic reaction. Patient in no distress at this time. Denying any respiratory complaints or oropharyngeal complaints. No indication for epinephrine. Review of patient's records show that he received a full work-up last week including a normal BNP, CBC, CMP. Physical exam showed 1+ lower extremity pitting edema but patient has no respiratory complaints and had 100% oxygen saturation on room air. No indication for labs or imaging. Patient given 1 dose of prednisone and 1 dose of Benadryl in the emergency department. Given prescription for 5-day course of prednisone, refill of triamcinolone cream, prescription for p.o. Claritin. Told he needs to see a primary care physician for his chronic urticaria. He expressed understanding and was discharged. ddx: Dermatitis (atopic/contact) allergic reaction, insect bite, bed bugs/scabies, viral exanthem, cellulitis, SJS, TEN, nec fasc, petechiae Last Vital Signs Date Time Temp Pulse Resp B/P (MAP) Pulse Ox O2 Delivery O2 Flow Rate FiO2 10/24/20 03:47 98.2 79 16 125/85 (98) 97 Room Air Disposition: HOME, SELF-CARE Condition: Stable Scripts Loratadine (Claritin*) 10 Mg Tablet 10 MG PO DAILY for Allergies for 14 Days, TAB Prov: Clint Oliver M.D. 10/24/20 Triamcinolone Acetonide (Triamcinolone Acetonide 0.1% Oint*) 15 Gm Oint...g. 0 TP NEEDED for 7 Days, GM Prov: Clint Oliver M.D. 10/24/20 Prednisone* (PREDNISONE*) 20 Mg Tablet 40 MG ORAL DAILY for 5 Days, TAB Prov: Clint Oliver M.D. 10/24/20 Referrals: [facility]P) [facility] Sarita Herman [facility]. [facility] Patient Instructions: Medicine Refill at the Emergency Department Clint Oliver M.D. Oct 24, 2020 04:09
[2020-10-24 04:30] VITALS: BP 125/85
== END 2020-10-24 04:30 | disposition home or self-care (01) ==
LOC: EMR 03:49
DX: T78.40XA Allergy, unspecified, initial encounter (principal); Z76.0 Encounter for issue of repeat prescription; X58.XXXA Exposure to other specified factors, initial encounter; Y92.9 Unspecified place or not applicable; Z88.0 Allergy status to penicillin; Z88.8 Allergy status to other drugs, medicaments and biological substances
CPT/HCPCS: J7512; Z7502; 99282